=== PATIENT | female | born 1990 | race Caucasian/White ===

== ENCOUNTER 2018-06-22 17:17 | Emergency (ER) | payer MEDICAID, SELFPAY ==
[2018-06-22 17:18] VITALS: BP 129/93; PULSE 118; RESP 14; TEMP 36.1; O2SAT 97; BMI 32.5
[2018-06-22] MEDS: Ondansetron 4 MG/2 ML Vial IV (17:38)
[2018-06-22] MEDS: 0.9% Normal Saline 1,000 ML 999 ML IV (17:38)
[2018-06-22 17:47] LABS: Absolute Lymphocyte Count 0.62 X10^3/ul (0.83-4.51); Absolute Neutrophil Count 9.1 X10^3/uL (2.0-7.7); Basophil# 0.01 X10^3/uL; Basophil% 0.1 % (0-1); Eosinophil# 0.11 X10^3/uL; Eosinophils% 1.1 % (0-5); Hematocrit 41.1 % (37-47); Hemoglobin 13.7 g/dl (12.0-15.0); Lymphocyte # 0.62 X10^3/ul (4.0); Mean Corp Hgb Conc 33.3 g/gl (32-36); Mean Corpuscular Hgb 27.6 pg (27.0-32.0); Mean Corpuscular Volume 82.7 fL (81-99); Mean Platelet Vol. 10.8 fl (6.2-12.0); Monocyte# 0.51 X10^3/uL; Monocyte% 4.9 % (0-10); Neutrophil # 9.14 X10^3/uL (2.7-7.7); Neutrophil % 87.7 % (47-70); Platelet Count 271 K/mm3 (150-450); RBC Distribution Width CV 13.9 % (11.6-14.6); RBC Distribution Width SD 41.3 fl (35.1-43.9); Red Blood Count 4.97 M/mm3 (4.2-5.4); White Blood Count 10.4 K/mm3 (4.4-11.0)
[2018-06-22 17:51] LABS: POSITIVE COUNT NO; POSITIVE DIFFERENTIAL NO; POSITIVE MORPHOLOGY NO
[2018-06-22 18:07] LABS: AST(SGOT) 15 U/L (15-37); Alanine Aminotransfer ALT/SGPT 43 U/L (13-56); Alkaline Phosphatase 75 U/L (45-117); Anion Gap 10 (5-15); BUN 12 mg/dL (7-18); BUN/Creat Ratio 15.2 RATIO (10-20); Calcium,Total 8.9 mg/dL (8.5-10.1); Chloride 111 mmol/L (98-107); Creatinine, Serum 0.79 mg/dL (0.55-1.02); EST Glomerular Filtration Rate 94 mL/min (>60); Est Glom Filt Rate - Afr Amer 113 mL/min (>60); Estimated Creatinine Clearance 85.35 ml/min; Globulin 4.1 g/dL (2.2-4.2); Glucose 117 mg/dL (74-106); Lipase 64 U/L (73-393); Potassium 3.7 mmol/L (3.5-5.1); Protein, Total 8.1 g/dL (6.4-8.2); Sodium Level 141 mmol/L (136-145)
--- NOTE | 2018-06-22 18:09 | ED.VISSUMM ---
- ER Visit Summary Date of Service: 06/22/18 Chief Complaint: Nausea vomiting and diarrhea History of Present Illness: The patient is a 28 F who presents with the above symptoms. She started having the symptoms earlier today. She has vomited more than 10 times. She has had more diarrhea than that. She has diffuse abdominal cramping associated with this. Nothing makes it better or worse. She took nothing for this at home. She denies any fevers. No history of abdominal surgeries in the past Physical Examination: Vital signs reviewed. HEENT exam unremarkable. Heart is tachycardic and regular rhythm without murmurs. Lungs are clear to auscultation. Abdomen is soft and nontender. Extremities reveal no edema. Skin exam normal. Neurologic exam normal. Test Results: Laboratory showed a chloride of 111, bicarb 20. Glucose 117. The patient serum hCG is positive Emergency Department Course and Treatment: Patient given normal saline Zofran. She feels better. I informed her of the positive test. She states that her last period was a little bit manager investigations than normal and she was off of her control and she did not restarted because she was waiting for her next menstrual cycle. 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 I will give her Zofran for home. Treatment Plan: [] Disposition: Discharge Impression: Nausea vomiting and diarrhea, This note was generated with TweetMeme dictation software. It may contain incorrect words, spelling, and punctuation that were not noted in review of the chart prior to signing ED Disposition - Plan for ED Patient: Chief Complaint: Nausea/Vomiting/Diarrhea Referrals: Lior Parker MD [Primary Care Provider] -
[2018-06-22 18:20] LABS: Pregnancy, Serum, hCG Quali. POSITIVE Negative (0-9 Nonpreg)
--- NOTE | 2018-06-22 18:20 | ED.RN ---
Etta from lab called result on this pt of positive test
--- NOTE | 2018-06-22 18:29 | ED.DEP ---
ED Disposition - Plan for ED Patient: Disposition: Home or Assisted Living Chief Complaint: Nausea/Vomiting/Diarrhea Instructions: ED Gastroenteritis Viral Prescriptions: Ondansetron [Zofran Odt] 4 mg PO Q8H PRN PRN #10 tab PRN Reason: Nausea Referrals: Lior Parker MD [Primary Care Provider] -
[2018-06-22 18:34] VITALS: BP 122/78; PULSE 87; RESP 16; O2SAT 98
== END 2018-06-22 18:35 | disposition home or self-care (01) ==
PROVIDERS: Emergency Provider Emergency Medicine; Family Provider Family Medicine; PCP Family Medicine
DX: O21.9 Vomiting of pregnancy, unspecified (principal); R00.0 Tachycardia, unspecified; R19.7 Diarrhea, unspecified; Z3A.00 Weeks of gestation of pregnancy not specified
CPT/HCPCS: 80053; 83690; 84703; 85025; 96361; 96374; 99284; J7030; A4216; J2405

== ENCOUNTER → 2018-07-21 09:19 | Outpatient (CLI) | payer MEDICAID, SELFPAY ==
[2018-07-21 09:12] VITALS: BMI 32.5
[2018-07-21 09:56] LABS: Absolute Lymphocyte Count 1.78 X10^3/ul (0.83-4.51); Absolute Neutrophil Count 3.9 X10^3/uL (2.0-7.7); Basophil# 0.03 X10^3/uL; Basophil% 0.5 % (0-1); Eosinophil# 0.28 X10^3/uL; Eosinophils% 4.4 % (0-5); Hematocrit 34.6 % (37-47); Hemoglobin 11.7 g/dl (12.0-15.0); Lymphocyte # 1.78 X10^3/ul (4.0); Mean Corp Hgb Conc 33.8 g/gl (32-36); Mean Corpuscular Hgb 28.6 pg (27.0-32.0); Mean Corpuscular Volume 84.6 fL (81-99); Mean Platelet Vol. 10.8 fl (6.2-12.0); Monocyte# 0.39 X10^3/uL; Monocyte% 6.1 % (0-10); Neutrophil # 3.86 X10^3/uL (2.7-7.7); Neutrophil % 60.7 % (47-70); POSITIVE COUNT NO; POSITIVE DIFFERENTIAL NO; POSITIVE MORPHOLOGY NO; Platelet Count 234 K/mm3 (150-450); RBC Distribution Width CV 13.4 % (11.6-14.6); RBC Distribution Width SD 41.1 fl (35.1-43.9); Red Blood Count 4.09 M/mm3 (4.2-5.4); White Blood Count 6.4 K/mm3 (4.4-11.0)
[2018-07-21 10:16] LABS: Glucose Challenge Gest 1H 50g 169 mg/dL (70-140)
[2018-07-21 12:03] LABS: HIV - WCH Non-Reactive (Nonreactive); Rubella IgG 79.9 IU/mL
[2018-07-21 15:07] LABS: Chlamydia Trachomatis by PCR Negative (Negative); Neisserai gonorrhoeae by PCR Negative (Negative); Probe Check PASS; Sample Adequacy Control PASS; Specimen Processing Control PASS
[2018-07-21 21:32] LABS: Chlamydia Trachomatis by PCR Negative (Negative); Neisserai gonorrhoeae by PCR Negative (Negative); Probe Check PASS; Sample Adequacy Control PASS; Specimen Processing Control PASS
[2018-07-22 12:23] LABS: HEPATITIS B SURFACE AG Negative (Negative)
[2018-07-24 03:11] LABS: Rapid Plasmin Reagin (RPR) NONREACTIVE (NONREACTIVE)
[2018-07-24 08:38] LABS: HPV Reflexed? NOT INDICATED
== END ==
PROVIDERS: Family Provider Family Medicine; PCP Family Medicine; Visit Provider Obstetrics & Gynecology
DX: Z34.81 Encounter for supervision of other normal pregnancy, first trimester (principal); Z12.4 Encounter for screening for malignant neoplasm of cervix
CPT/HCPCS: 36415; 82950; 85025; 86592; 86703; 86762; 86850; 86900; 87086; 87340; 87491; 87591; 87624; 88175; G0145

== ENCOUNTER → 2018-07-23 07:00 | Outpatient (CLI) | payer MEDICAID, SELFPAY ==
[2018-07-21 09:12] VITALS: BMI 32.5
[2018-07-23 07:52] LABS: Glucose GTT-Gestation. Fasting 113 mg/dL (<105)
[2018-07-23 09:44] LABS: Glucose GTT-Gestational 1 Hr 214 mg/dL (<190)
[2018-07-23 09:46] LABS: Glucose GTT-Gestational 2 Hr 159 mg/dL (<165)
[2018-07-23 11:30] LABS: Glucose GTT-Gestational 3 Hr 82 L (<145)
== END ==
PROVIDERS: Family Provider Family Medicine; PCP Family Medicine; Referring Provider Obstetrics & Gynecology; Visit Provider Obstetrics & Gynecology
DX: R73.09 Other abnormal glucose (principal)
CPT/HCPCS: 36415; 82951; 82952

== ENCOUNTER → 2018-07-24 11:52 | Outpatient (CLI) | payer MEDICAID, SELFPAY ==
[2018-07-21 09:12] VITALS: BMI 32.5
--- NOTE | 2018-07-24 12:16 | EKG12_ITS ---
Test Reason : PRE DIABETIC PREG Blood Pressure : / mmHG Vent. Rate : 082 BPM Atrial Rate : 082 BPM P-R Int : 178 ms QRS Dur : 084 ms QT Int : 356 ms P-R-T Axes : 028 037 029 degrees QTc Int : 415 ms Normal sinus rhythm with sinus arrhythmia Normal ECG Confirmed by YVON RICHARDS, MELISSA ([id number]), newspaper or periodical editor KIET GUERRERO ([id number]) on 07/27/2018 2:51:02 PM Referred By: Cailin Rodriguez Confirmed By:MELISSA SANZ MD
[2018-07-24 13:52] LABS: Protein, Urine (Random) < 6.0 mg/dL (<11.9); Protein:Creat Ratio 64 mg/g CRE (0-200)
[2018-07-24 14:09] LABS: AST(SGOT) 13 U/L (15-37); Alanine Aminotransfer ALT/SGPT 29 U/L (13-56); Albumin, Serum 3.8 g/dL (3.2-5.0); Alkaline Phosphatase 62 U/L (45-117); Anion Gap 11 (5-15); BUN 10 mg/dL (7-18); BUN/Creat Ratio 16.1 RATIO (10-20); Calcium,Total 9.3 mg/dL (8.5-10.1); Chloride 106 mmol/L (98-107); Creatinine, Serum 0.62 mg/dL (0.55-1.02); EST Glomerular Filtration Rate 123 mL/min (>60); Est Glom Filt Rate - Afr Amer 149 mL/min (>60); Globulin 3.9 g/dL (2.2-4.2); Glucose 76 mg/dL (74-106); Potassium 3.7 mmol/L (3.5-5.1); Protein, Total 7.7 g/dL (6.4-8.2); Sodium Level 140 mmol/L (136-145); Thyroid Stim Hormone (TSH) 1.07 uIU/mL (0.358-3.74)
== END ==
PROVIDERS: Family Provider Family Medicine; PCP Family Medicine; Referring Provider Nurse Practitioner Women's Health; Visit Provider Nurse Practitioner Women's Health
DX: O24.419 Gestational diabetes mellitus in pregnancy, unspecified control (principal); Z3A.00 Weeks of gestation of pregnancy not specified
CPT/HCPCS: 36415; 80053; 82570; 84156; 84443; 93005

== ENCOUNTER 2018-08-19 10:45 | Outpatient (RCR) | payer MEDICAID, SELFPAY ==
[2018-07-21 09:12] VITALS: BMI 32.5
== END 2018-08-23 23:59 ==
LOC: DC 10:45
PROVIDERS: Family Provider Family Medicine; PCP Family Medicine; Visit Provider Nurse Practitioner Women's Health
DX: O24.919 Unspecified diabetes mellitus in pregnancy, unspecified trimester (principal)
CPT/HCPCS: 97802; G0108

== ENCOUNTER 2018-09-11 14:52 | Emergency (ER) | payer MEDICAID, SELFPAY ==
[2018-08-18 10:26] VITALS: BMI 32.5
[2018-09-11 14:57] VITALS: BP 106/77; PULSE 78; RESP 18; TEMP 36.1; O2SAT 98; BMI 32.9
[2018-09-11] MEDS: Ondansetron 4 MG/2 ML Vial IV (15:03)
[2018-09-11] MEDS: Ketorolac 15 MG/ML Vial IV (15:04)
--- NOTE | 2018-09-11 15:05 | CT_ITS ---
STUDY: CT ABDOMEN AND PELVIS WITHOUT CONTRAST REASON FOR EXAM: Female, 28 years old. Left flank pain. patient. RADIATION DOSAGE (If Supplied By Facility): CTDIvol = ( 9.03 ) mGy, DLP = ( 448.96 ) mGycm TECHNIQUE: Transaxial images were obtained from the dome of the diaphragm to the symphysis pubis without oral contrast, and without intravenous contrast. Sagittal and coronal images were reconstructed. Individualized dose optimization techniques were used for this CT. COMPARISON: None. FINDINGS: The visualized lung bases are unremarkable. The visualized portions of the heart are within normal limits. Normal liver. Normal gallbladder and extrahepatic biliary system. Normal spleen. Normal pancreas. Normal bilateral adrenal glands. Normal right kidney. No stones or hydronephrosis. Left kidney suggests mild hydronephrosis. Probable mild hydroureter although the ureters very difficult to follow into the pelvis. A 6 mm calcification in the area of the left UVJ is probably a distal left ureteral calculus. No other stones are seen. Evaluation of the GI tract is limited by the absence of oral contrast. Normal visualized stomach. Normal small intestine. Normal colon. The appendix is visualized and appears normal. Normal abdominal aorta. Normal inferior vena cava. Normal retroperitoneum. Normal urinary bladder. There is an early seen in the uterus. There is a small umbilical hernia containing fat. Normal osseous structures. CT/Abdomen/Pelvis without Cont IMPRESSION: Probable 6 mm distal left ureteral calculus with mild hydronephrosis and hydroureter. Electronically Signed: Herson Brooks MD at 16:29 EDT , Service support ,
[2018-09-11] MEDS: Morphine 4 MG/ML Syringe IV ×2 (15:09→15:59)
--- NOTE | 2018-09-11 15:10 | ED.DCSUM_ITS ---
History of Present Illness Chief Complaint: Flank Pain Informant: Patient Onset: Today Context: Sudden Onset Timing: Continuous, Waxes and wanes Quality: Colicky pain left side Location: Left flank Current Severity: Severe Maximum Severity: Severe Worsened by: Nothing Relieved by: Nothing Associated Symptoms: Nausea, vomiting and diaphoresis Narrative: Patient presents with abrupt left flank pain. She reports nausea, vomiting diaphoresis. She denies fever chills. She has prior history of ureteral lithiasis with obstruction. She is 16 weeks gestation. Pain started approximately 3 hours prior to presentation. Pain has intensified over the last hour. She denies dysuria or hematuria. She does report urgency. Prior similar symptoms: Yes Recent Illness/Hospitalization: No - Past Medical History (1) History of ureteral stone Status: Resolved (2) Diabetes in Status: Acute Comment: baseline Pre E labs, EKG(normal), Opthamologist. (3) Nausea and vomiting Status: Acute Past Medical History - Allergies and Home Meds Allergies/Adverse Reactions: Allergies No Known Allergies Allergy (Verified 09/11/18 15:07) Primary Care Physician: Lior Parker MD [Primary Care Provider] - Prior records reviewed: Yes Surgical History: noncontributory Lives: With Family Smoking Status: Never smoker Alcohol: None Drugs: None Review of Systems General: Denies: Chills, Fever, Sweats Eyes: Denies: Visual changes - bilaterally, Diplopia ENT: Denies: Rhinorrhea, Sore throat Cardiovascular: Denies: Chest pain, Palpitations, Heart racing Respiratory: Denies: Dyspnea, Cough, Dyspnea on exertion Gastrointestinal: Denies: Abdominal pain, Nausea, Vomiting, Diarrhea, Melena, Hematochezia Genitourinary: Reports: - - Patient reports urgency. Denies: Dysuria, Hematuria, Frequency Musculoskeletal: Reports: Back pain Skin: Denies: Rash, Wounds Neurological: Denies: Headache, Weakness, Numbness Hematologic: Denies: Easy bruising, Easy bleeding Allergy: Denies: Uticaria Physical Exam Vital Signs/Narrative: Vital Signs Temp Pulse Resp BP Pulse Ox 09/11/18 14:57 97 F L 78 18 106/77 98 Inital Vital Signs reviewed: Yes General: Well nourished, Well developed, Acute Distress - Patient in obvious discomfort and writhing on the examination cough. She is pale and diaphoretic. Head: Normocephalic, Atraumatic Eyes: Perrl, EOMI ENT: Moist mucous membranes, No rhinorrhea Neck: Supple, Nontender Cardiovascular: Regular rate, Regular rhythm, No murmurs Respiratory: No distress, CTA bilaterally, Chest nontender Abdomen: Soft, Nontender, Nondistended, Normal bowel sounds, No masses. Negative for: Hepatomegaly, Splenomegaly, Mass Back: Nontender, Normal Inspection. Negative for: CVA tenderness Extremities: Nontender, No edema Skin: Normal color, No rash Neurological: Alert, Oriented x3, Cranial nerves II-XII grossly intact, Normal Strength, Normal Sensation, Normal Gait Psychological: Normal affect, Normal Mood Diagnostic/Tx/Re-eval 09/11/18 15:05 Abdomen/Pelvis without Cont [CT] Stat Laboratory Results 09/11/18 09/11/18 09/11/18 15:00 15:00 15:50 WBC 10.6 RBC 4.29 Hgb 11.9 L Hct 34.9 L MCV 81.4 MCH 27.7 MCHC 34.1 RDW 13.4 RDW Differential 39.7 Plt Count 223 MPV 11.3 Immature Gran % (Auto) 0.200 Neut % (Auto) 74.8 H Lymph % (Auto) 17.6 L [place] % (Auto) 5.6 Eos % (Auto) 1.6 Baso % (Auto) 0.2 Absolute Neuts (auto) 7.9 H Absolute Lymphs (auto) 1.86 Total Counted Not Reportable Sodium 139 Potassium 3.4 L Chloride 107 Carbon Dioxide 20.0 L Anion Gap 12 BUN 10 Creatinine 0.68 Estim Creat Clear Calc 99.16 Est GFR (MDRD) Af Amer 134 Est GFR (MDRD) Non-Af 111 BUN/Creatinine Ratio 14.7 Glucose 116 H Calcium 9.0 Urine Color Yellow Urine Clarity Sl. Cloudy Urine pH 6.0 Ur Specific [place] 1.025 Urine Protein 30 H Urine Glucose (UA) Normal Urine Ketones 150 H Urine Occult Blood 250 H Urine Nitrite Negative Urine Bilirubin Negative Urine Urobilinogen Normal Ur Leukocyte Esterase 25 H Formal read by radiologist pending. Per my interpretation there is a distal left ureteral stone at the UVJ. Patient's pain is markedly better. Plan is discharge unless there is any other abnormality noted. - Medical Decision Making With acute onset of flank pain with nausea and vomiting suspect obstructing ureteral stone. CBC, BMP were obtained to assess white count and differential as well as renal function. UA to evaluate for infection. Since she is in her second trimester she received 15 mg of IV Toradol as well as 4 mg of morphine and 4 mg of Zofran IV push. Will obtain CT to assess size and location of stone. ED Disposition - Plan for ED Patient: Disposition: Home or Assisted Living Diagnosis: Hydronephrosis with urinary obstruction due to ureteral calculus, Ketosis Instructions: ED Stone Renal W Colic Prescriptions: Oxycodone HCl/Acetaminophen [Percocet 5/325] 1 tablet PO Q6H PRN PRN 5 Days #20 tablet PRN Reason: Pain Naproxen [Naprosyn] 500 mg PO BID #14 tablet Referrals: Lior Parker MD [Primary Care Provider] - Ponce Herrera MD [STAFF PHYSICIAN] - 5-7 Days Additional Instructions: Your prescription was electronically transmitted to [facility] pharmacy on back [facility].
[2018-09-11 15:19] LABS: Absolute Lymphocyte Count 1.86 X10^3/ul (0.83-4.51); Absolute Neutrophil Count 7.9 X10^3/uL (2.0-7.7); Basophil# 0.02 X10^3/uL; Basophil% 0.2 % (0-1); Eosinophil# 0.17 X10^3/uL; Eosinophils% 1.6 % (0-5); Hematocrit 34.9 % (37-47); Hemoglobin 11.9 g/dl (12.0-15.0); Lymphocyte # 1.86 X10^3/ul (4.0); Lymphocyte % 17.6 % (19-41); Mean Corp Hgb Conc 34.1 g/gl (32-36); Mean Corpuscular Hgb 27.7 pg (27.0-32.0); Mean Corpuscular Volume 81.4 fL (81-99); Mean Platelet Vol. 11.3 fl (6.2-12.0); Monocyte# 0.59 X10^3/uL; Monocyte% 5.6 % (0-10); Neutrophil # 7.89 X10^3/uL (2.7-7.7); Neutrophil % 74.8 % (47-70); Platelet Count 223 K/mm3 (150-450); RBC Distribution Width CV 13.4 % (11.6-14.6); RBC Distribution Width SD 39.7 fl (35.1-43.9); Red Blood Count 4.29 M/mm3 (4.2-5.4); White Blood Count 10.6 K/mm3 (4.4-11.0)
[2018-09-11 15:26] LABS: POSITIVE COUNT NO; POSITIVE DIFFERENTIAL NO; POSITIVE MORPHOLOGY NO
[2018-09-11 15:33] LABS: Anion Gap 12 (5-15); BUN 10 mg/dL (7-18); BUN/Creat Ratio 14.7 RATIO (10-20); Chloride 107 mmol/L (98-107); Creatinine, Serum 0.68 mg/dL (0.55-1.02); EST Glomerular Filtration Rate 111 mL/min (>60); Est Glom Filt Rate - Afr Amer 134 mL/min (>60); Estimated Creatinine Clearance 99.16 ml/min; Glucose 116 mg/dL (74-106); Potassium 3.4 mmol/L (3.5-5.1); Sodium Level 139 mmol/L (136-145)
[2018-09-11 16:06] LABS: Color, Urine Yellow (Yellow); Glucose, Dipstick Normal (Normal); Leukocyte Esterase-Dipstick 25 /ul (Negative); Nitrite-Dipstick Negative (Negative); Occult Blood-Urine 250 /ul (Negative); Protein-Dipstick 30 mg/dl (Negative); Specific Gravity, Urine 1.025 (1.002-1.030); Urine Bilirubin Dipstick Negative (Negative); Urine Clarity Sl. Cloudy (Clear); Urine Urobilinogen Normal (Normal)
[2018-09-11 16:15] LABS: Bacteria 1+ /hpf (None Seen); Mucous, Urine 2+ /hpf (<or=2+); Red Blood Cells-Urine 50-100 SEEN /hpf (0-5); Squamous Epithelial Cells - UA 0-5 SEEN /hpf (5-10); White Blood Cells 0-5 SEEN /hpf (0-5)
[2018-09-11 16:17] LABS: Ketone-Dipstick 150 mg/dl (Negative)
--- NOTE | 2018-09-11 16:49 | ED.DEP ---
ED Disposition - Plan for ED Patient: Disposition: Home or Assisted Living Diagnosis: Hydronephrosis with urinary obstruction due to ureteral calculus, Ketosis Instructions: ED Stone Renal W Colic Prescriptions: Oxycodone HCl/Acetaminophen [Percocet 5/325] 1 tablet PO Q6H PRN PRN 5 Days #20 tablet PRN Reason: Pain Naproxen [Naprosyn] 500 mg PO BID #14 tablet Referrals: Ponce Herrera MD [STAFF PHYSICIAN] - 5-7 Days Lior Parker MD [Primary Care Provider] - Additional Instructions: Your prescription was electronically transmitted to [facility] pharmacy on back [facility].
--- NOTE | 2018-09-11 16:52 | DCINST.ED_ITS ---
ED Disposition - Plan for ED Patient: Disposition: Home or Assisted Living Diagnosis: Hydronephrosis with urinary obstruction due to ureteral calculus, Ketosis Instructions: ED Stone Renal W Colic Prescriptions: Oxycodone HCl/Acetaminophen [Percocet 5/325] 1 tablet PO Q6H PRN PRN 5 Days #20 tablet PRN Reason: Pain Naproxen [Naprosyn] 500 mg PO BID #14 tablet Referrals: Ponce Herrera MD [STAFF PHYSICIAN] - 5-7 Days Lior Parker MD [Primary Care Provider] - Additional Instructions: Your prescription was electronically transmitted to [facility] pharmacy on back [facility].
[2018-09-11 17:00] VITALS: BP 125/79; PULSE 85; RESP 16; O2SAT 100
[2018-09-11 17:01] VITALS: BP 125/79; PULSE 89; RESP 16; O2SAT 100
== END 2018-09-11 17:11 | disposition home or self-care (01) ==
PROVIDERS: Emergency Provider Emergency Medicine; Family Provider Family Medicine; PCP Family Medicine
DX: O99.89 Other specified diseases and conditions complicating pregnancy, childbirth and the puerperium (principal); N13.2 Hydronephrosis with renal and ureteral calculous obstruction; Z87.442 Personal history of urinary calculi; O99.282 Endocrine, nutritional and metabolic diseases complicating pregnancy, second trimester; E88.89 Other specified metabolic disorders; O24.912 Unspecified diabetes mellitus in pregnancy, second trimester; Z3A.16 16 weeks gestation of pregnancy
CPT/HCPCS: 74176; 80048; 81001; 85025; 96374; 96375; 96376; 99283; J7030; J2405

== ENCOUNTER 2018-09-21 09:30 | Outpatient (RCR) | payer MEDICAID, SELFPAY ==
[2018-08-18 10:26] VITALS: BMI 32.5
[2018-09-16 09:17] VITALS: BMI 32.9
== END 2018-09-22 23:59 ==
LOC: DC 09:30
PROVIDERS: Family Provider Family Medicine; PCP Family Medicine; Visit Provider Nurse Practitioner Women's Health
DX: O24.919 Unspecified diabetes mellitus in pregnancy, unspecified trimester (principal)
CPT/HCPCS: 97803

== ENCOUNTER 2018-10-20 09:00 | Outpatient (RCR) | payer MEDICAID, SELFPAY ==
[2018-09-23 01:33] VITALS: BMI 32.5
== END 2018-10-23 23:59 ==
LOC: DC 09:00
PROVIDERS: Family Provider Family Medicine; PCP Family Medicine; Visit Provider Nurse Practitioner Women's Health
DX: O24.919 Unspecified diabetes mellitus in pregnancy, unspecified trimester (principal)

== ENCOUNTER 2018-11-16 09:30 | Outpatient (RCR) | payer MEDICAID, SELFPAY ==
[2018-10-24 01:00] VITALS: BMI 32.9
[2018-10-26 10:28] VITALS: BMI 32.0
== END 2018-11-22 23:59 ==
LOC: DC 09:30
PROVIDERS: Family Provider Family Medicine; PCP Family Medicine; Visit Provider Nurse Practitioner Women's Health
DX: O24.919 Unspecified diabetes mellitus in pregnancy, unspecified trimester (principal)

== ENCOUNTER → 2018-12-08 09:55 | Outpatient (CLI) | payer MEDICAID, SELFPAY ==
[2018-12-08 09:34] VITALS: BMI 32.0
[2018-12-08 10:43] LABS: Absolute Lymphocyte Count 1.55 X10^3/uL (0.83-4.51); Absolute Neutrophil Count 5.4 X10^3/uL (2.0-7.7); Basophil# 0.01 X10^3/uL; Basophil% 0.1 % (0-1); Eosinophil# 0.15 X10^3/uL; Hematocrit 32.2 % (37-47); Hemoglobin 10.8 g/dL (12.0-15.0); Lymphocyte # 1.55 X10^3/ul (4.0); Lymphocyte % 20.6 % (19-41); Mean Corp Hgb Conc 33.5 g/dL (32-36); Mean Corpuscular Volume 86.3 fL (81-99); Mean Platelet Vol. 11.2 fl (6.2-12.0); Monocyte# 0.37 X10^3/uL; Monocyte% 4.9 % (0-10); NRBC Flagged by Analyzer 0 % (0-5); Neutrophil # 5.39 X10^3/uL (2.7-7.7); Neutrophil % 71.6 % (47-70); Platelet Count 212 K/mm3 (150-450); RBC Distribution Width CV 14.1 % (11.6-14.6); RBC Distribution Width SD 43.9 fl (35.1-43.9); Red Blood Count 3.73 M/mm3 (4.2-5.4); White Blood Count 7.5 K/mm3 (4.4-11.0)
[2018-12-08 10:56] LABS: Glucose Challenge Gest 1H 50g 163 mg/dL (70-140)
== END ==
PROVIDERS: Family Provider Family Medicine; PCP Family Medicine; Referring Provider Nurse Practitioner Women's Health; Visit Provider Nurse Practitioner Women's Health
DX: O09.90 Supervision of high risk pregnancy, unspecified, unspecified trimester (principal); O24.919 Unspecified diabetes mellitus in pregnancy, unspecified trimester; Z3A.00 Weeks of gestation of pregnancy not specified
CPT/HCPCS: 82950; 85025; 86850; 86900

== ENCOUNTER 2018-12-15 13:30 | Outpatient (RCR) | payer MEDICAID, SELFPAY ==
[2018-11-12 14:07] VITALS: BMI 32.0
[2018-12-08 09:34] VITALS: BMI 32.0
== END 2018-12-15 23:59 | disposition home or self-care (01) ==
LOC: DC 13:30
PROVIDERS: Family Provider Family Medicine; PCP Family Medicine; Visit Provider Nurse Practitioner Women's Health
DX: Z71.3 Dietary counseling and surveillance (principal); O24.919 Unspecified diabetes mellitus in pregnancy, unspecified trimester; Z3A.00 Weeks of gestation of pregnancy not specified

== ENCOUNTER → 2018-12-30 12:27 | Outpatient (CLI) | payer MEDICAID, SELFPAY ==
[2018-12-21 16:33] VITALS: BMI 32.0
--- NOTE | 2018-12-30 12:29 | US_ITS ---
STUDY: SECOND AND THIRD TRIMESTER OBSTETRICAL ULTRASOUND REASON FOR EXAM: Female, 28 years old. Routine survey. The patient has a history of gestational diabetes. LMP: May 24, 2018. TECHNIQUE: Transabdominal TECHNICAL QUALITY: Adequate. PRIOR ULTRASOUND: None. FINDINGS: There is a single intrauterine fetus. The fetus is in a breech presentation. There is demonstrated cardiac activity with a heart rate of 136 bpm. There is a normal amniotic fluid volume. The largest amniotic fluid pocket measures 5.7 cm. The amniotic fluid index (SELENA) is 17.4 cm. The placenta is anterior in location and is not low lying. There is a 2.4 cm x 2.4 cm x 2.2 cm placental martínez. There are Grade 1 placental changes. The cervix measures 4.7 cm in length. The adnexal regions are not visualized. BIOMETRY: BPD: 7.94 cm: 32 weeks, 0 days HC: 29.32 cm: 30 weeks, 3 days AC: 28.48 cm: 32 weeks, 4 days FL: 5.1 cm: 30 weeks, 3 days CI: 79% FL/BPD: 73% FL/HC: FL/AC: 20% HC/AC: 1.03 age by current US: 31 weeks, 6 days. ELVA by current US: February 28, 2019. Estimated weight: 1841 grams, +/- 269 grams, 51 %. Age by LMP: 31 weeks, 3 days. ELVA by LMP: February 25, 2019. US/OB Limited With Biometrics IMPRESSION: Single live intrauterine gestation with a mean gestational age of 31 weeks and 6 days. Electronically Signed: Ankush Pinzon, at 9:41 EDT , Service support ,
== END ==
PROVIDERS: Family Provider Family Medicine; PCP Family Medicine; Referring Provider Nurse Practitioner Women's Health; Visit Provider Nurse Practitioner Women's Health
DX: O24.919 Unspecified diabetes mellitus in pregnancy, unspecified trimester (principal); Z3A.00 Weeks of gestation of pregnancy not specified
CPT/HCPCS: 76816

== ENCOUNTER → 2019-02-04 09:02 | Outpatient (CLI) | payer MEDICAID, SELFPAY ==
[2019-01-20 09:47] VITALS: BMI 32.0
[2019-01-30 03:58] VITALS: BMI 32.0
--- NOTE | 2019-02-04 09:04 | US_ITS ---
STUDY: SECOND AND THIRD TRIMESTER OBSTETRICAL ULTRASOUND REASON FOR EXAM: Female, 28 years old. Evaluate growth LMP: 05/24/2018 TECHNIQUE: Transabdominal TECHNICAL QUALITY: Adequate. PRIOR ULTRASOUND: 12/30/2018 FINDINGS: There is a single intrauterine fetus. The fetus is in a cephalic presentation. There is demonstrated cardiac activity with a heart rate of 146 bpm. There is a normal amniotic fluid volume. The largest amniotic fluid pocket measures 4.8 cm. The amniotic fluid index (SELENA) is 14.8 cm. The placenta is anterior in location and is not low lying. There are Grade 2 placental changes. A previously reported placental martínez appear smaller in the interval. The cervix was not visualized. The adnexal regions were not visualized. BIOMETRY: BPD: 9.0 cm: 36 weeks, 4 days HC: 32.7 cm: 37 weeks, 2 days AC: 32.8 cm: 36 weeks, 6 days FL: 7.0 cm: 36 weeks, 0 days CI: 80% FL/BPD: 78% FL/AC: 21% HC/AC: 1.00 age by current US: 36 weeks, 5 days. ELVA by current US: 02/27/2019. Estimated weight: 2974 grams, +/- 434 grams, 54 %. age by prior US: 37 weeks, 0 days. ELVA by prior US: 02/25/2019. Age by LMP: 36 weeks, 4 days. ELVA by LMP: 02/28/2019. ANATOMY: The umbilical cord is located along the posterior neck and both sides of the neck. Due to position the position of the cord along the anterior neck could not be determined. US/OB Limited With Biometrics IMPRESSION: No viable intrauterine of approximately 36 weeks 5 days gestational age by current ultrasonographic measurement. A heart rate of 146 bpm was noted. The SELENA is within normal limits. Electronically Signed: James Cast MD at 22:29 EDT , Service support ,
== END ==
PROVIDERS: Family Provider Family Medicine; PCP Family Medicine; Referring Provider Nurse Practitioner Women's Health; Visit Provider Nurse Practitioner Women's Health
DX: O24.919 Unspecified diabetes mellitus in pregnancy, unspecified trimester (principal); Z3A.00 Weeks of gestation of pregnancy not specified
CPT/HCPCS: 76816

== ENCOUNTER → 2019-02-05 11:16 | Outpatient (CLI) | payer MEDICAID, SELFPAY ==
[2019-02-05 10:26] VITALS: BMI 32.0
== END ==
PROVIDERS: Family Provider Family Medicine; PCP Family Medicine; Referring Provider Obstetrics & Gynecology; Visit Provider Obstetrics & Gynecology
DX: Z34.93 Encounter for supervision of normal pregnancy, unspecified, third trimester (principal); Z3A.36 36 weeks gestation of pregnancy
CPT/HCPCS: 87077; 87081; 87186

== ENCOUNTER 2019-02-14 05:32 | Outpatient (CLI) | payer MEDICAID, SELFPAY ==
[2019-02-11 09:23] VITALS: BMI 32.0
[2019-02-14 06:09] VITALS: BMI 32.5
[2019-02-14 07:01] LABS: Bedside Glucose 78 mg/dL (70-110)
--- NOTE | 2019-02-14 12:27 | OB.TRI.PN ---
Progress Notes Date of Service: 02/14/19 Progress Note: Patient presents for triage evaluation secondary to contractions FHT: 140 Moderate variability reactive no decelerations category I tracing Arthur: Irregular contractions Assessment and plan: False labor reactive NST, reassuring maternal and status patient discharged to home to follow-up as scheduled. See problem list details for additional plan information. Laboratory Studies: Laboratory Tests 02/14/19 Range/Units 06:57 POC Glucose 78 (70-110) mg/dL Multi Select Codes - Urinary/Genital Urinary/Genital CPT Codes: 16761-55 non-stress test Interp
== END 2019-02-14 08:32 | disposition home or self-care (01) ==
LOC: WPOUT 05:58 → WP 05:59
PROVIDERS: Family Provider Family Medicine; PCP Family Medicine; Referring Provider Obstetrics & Gynecology; Visit Provider Obstetrics & Gynecology
DX: O47.9 False labor, unspecified (principal)
CPT/HCPCS: 59050; 82962; 99218; G0378

== ENCOUNTER 2019-02-22 08:50 | Inpatient (IN) | payer MEDICAID, SELFPAY ==
[2019-02-16 10:37] VITALS: BMI 32.5
[2019-02-22 08:58] VITALS: BMI 32.7
[2019-02-22] MEDS: Lactated Ringers 1,000 ML 50 ML IV (09:05)
[2019-02-22 09:37] LABS: Absolute Lymphocyte Count 1.97 X10^3/uL (0.83-4.51); Absolute Neutrophil Count 6.7 X10^3/uL (2.0-7.7); Basophil# 0.05 X10^3/uL; Basophil% 0.5 % (0-1); Eosinophil# 0.19 X10^3/uL; Hematocrit 34.3 % (37-47); Hemoglobin 11.4 g/dL (12.0-15.0); Lymphocyte # 1.97 X10^3/ul (4.0); Lymphocyte % 20.6 % (19-41); Mean Corp Hgb Conc 33.2 g/dL (32-36); Mean Corpuscular Volume 84.3 fL (81-99); Monocyte# 0.59 X10^3/uL; Monocyte% 6.2 % (0-10); NRBC Flagged by Analyzer 0 % (0-5); Platelet Count 202 K/mm3 (150-450); RBC Distribution Width CV 13.9 % (11.6-14.6); RBC Distribution Width SD 42.6 fl (35.1-43.9); Red Blood Count 4.07 M/mm3 (4.2-5.4); White Blood Count 9.6 K/mm3 (4.4-11.0)
[2019-02-22] MEDS: Oxytocin 30 units/NS 500 ml 30 UNITS/500 ML IV.SOLN IV (09:41)
[2019-02-22] MEDS: Lactated Ringers 500 ML 999 ML IV ×2 (12:40→14:38)
--- NOTE | 2019-02-22 13:14 | PCM.HPOB.BLA ---
- Problem List (1) Anemia affecting Status: Acute Qualifiers: Comment: Start iron (2) Diabetes in Status: Acute Qualifiers: Comment: baseline Pre E labs nl, EKG(normal), s/p Opthamologist. growth us q4 weeks after 32 and weekly nst after 32 iol 39 (3) Pain in symphysis pubis during Status: Acute (4) Positive GBS test Status: Acute (5) Status: Acute Qualifiers: Comment: genetic, carrier, and ntd screening declined. anatomy scan-normal. f/u showed adequate growth (6) Segmental and somatic dysfunction of lumbar region Status: Acute (7) Segmental and somatic dysfunction of sacral region Status: Acute (8) Supervision of high risk , antepartum Status: Acute Comment: PRR ELVA 02/28/19 PC Pushpa [facility], Cesar boyfriend Luis Alfredo History and Physical Date of Admission: 02/22/19 MR#:[id number] Name: TASHIBOOGIE Goldmancece #:[id number] :1990 Provider: DAVID Rodriguez Age/Sex: 28/F Location:[facility] Status:Signed Intake Vital Signs 02/11/19 Blood Pressure 92/78 02/11/19 Body Mass Index (BMI) 32.0 02/11/19 Height 5 ft 2 in 02/11/19 Weight: 178 lb 02/11/19 Body Mass Index (BMI) 32.5 02/11/19 Blood Pressure 92/78 02/04/19 Body Mass Index (BMI) 32.0 Intake Visit Reasons: 37 WK OB/NST Chief Complaint: est ob,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 Is patient in pain?: No Allergies No Known Allergies Allergy (Verified 02/11/19 09:23) Medications blood sugar diagnostic strips See Dose Instructions .ROUTE .MEDSUPPLY #100 ea 07/23/18 [Rx Confirmed 02/11/19] blood-glucose meter kit See Dose Instructions .ROUTE .MEDSUPPLY #1 ea 07/23/18 [Rx Confirmed 02/11/19] lancets 28 gauge See Dose Instructions .ROUTE .MEDSUPPLY #100 ea 08/11/18 [Rx Confirmed 02/11/19] Naproxen [Naprosyn] 500 mg PO BID #14 tab 09/11/18 [Rx Confirmed 02/11/19] Last Menstral Period: 05/24/18 Zika: Zika virus screening: Negative : No PFSH PFSH Medical History Anxiety and depression (Acute) Surgical History History of placement of ear tubes (Acute) History of tonsillectomy (Acute) Family History Aunt Cancer leukemia Grandfather Heart disease Unknown Breast cancer Social History (Updated 02/11/19 @ 10:10 by MIKIE Brooke) Smoking Status: Never smoker alcohol intake: never substance use type: does not use what type of physical activity do you participate in: walking seatbelt use: always do you feel safe at home: Yes additional social history: Single- [place] Pregancy History 4 Elective abortions Hx Para 3 Spontaneous abortions Hx # Term Pregnancies Ectopic pregnancies Hx # Pregnancies Multiple births # of living children Past Pregnancies Del. Date Name GA/Weeks Outcome Route Bth Weight Gen Labor Lgth Anesthesia Del Locatn Provider FOB Unknown 2011 Pushpa live - full term [facility] Leyla Unknown 2013 Shani live - full term [facility] Marcchanellony Unknown 2014 Cesar live - full term Male [facility] Harris HPI 37 WK OB/NST: Details: BOOGIE SOLORIO is a 28 year old who presents for routine OB visit. OB Visit ELVA Calculator Estimated Delivery Date Method Current WG Current Estimate 02/28/19 LMP (Certain) 37w 4d Expected Delivery Route/Plan Labor Preferences- labor support person: Curly pain management: epidural if needed cut cord/dad catch: yes : yes PP control planned: vasectomy. wants BTO-Title 19 signed 02/11:aware will be 6 wk pp at least discussed possible routes of delivery and associated risks: [] special requests: [] Specific Issue/Plans flu vaccine: given tdap vaccine: given rhogam: na LARC form signed: declines movement and labor precautions reviewed. Problem list reviewed and updated with the most current plan of care details and appropriate orders placed. Relevant counseling for the gestational age provided. Continue routine care and follow up unless otherwise noted in visit notes/problem list details Initial Weight: 182 lb Date EGA Weight BP Urine Prot Glucose FHR FuHt Pres Mov CTX Dilation Effaced St Visit Note Effaced 08/18/18 12w 2d 183 lb (+16 oz) 118/68 Negative Negative 146 Nausea improving. No VB, LOF. 09/16/18 16w 3d 177 lb (-5 lb) 114/68 Negative Negative 140 no vb cramping, well controlled blood sugars, decrease amount of testing. 10/13/18 20w 2d 174 lb (-8 lb) 140 bs well controlled no vb cramping some pelvic pressure, had normal anatomy scan per patient 11/10/18 24w 2d 175 lb (-7 lb) 122/70 Negative Negative 145 no vb lof good fm no regular ctx BS well controlled on diet alone 12/08/18 28w 2d 174 lb 8 oz (-7 lb 8 oz) 110/76 Negative Negative 137 28 Active absent Doing well. Glucose well controlled. NO VB, LOF 12/21/18 30w 1d 174 lb (-8 lb) 118/66 Negative Negative 135 30 no vb lof good fm n oregular ctx BS well controlled 01/05/19 32w 2d 175 lb (-7 lb) Negative Negative 135 BS well controlled growth us scheduled. no vb lof good fm no regular ctx 01/15/19 33w 5d 177 lb 4 oz (-4 lb 12 oz) 126/66 Negative Negative 135 34 no vb lof good fm no regular ctx BS well controlled 01/20/19 34w 3d 176 lb 1 oz (-5 lb 15 oz) 118/70 Negative Negative 135 34 Active absent NST. No VB, LOF 01/29/19 35w 5d 177 lb 4 oz (-4 lb 12 oz) 114/68 Trace Negative 130 Active absent BS well controlled no vb lof 02/05/19 36w 5d 178 lb (-4 lb) Negative Negative 130 37 Cephalic Active absent BS well controlled no vb lof 02/11/19 37w 4d 178 lb (-4 lb) 92/78 92/78 Negative Negative 136 37 Cephalic Active absent 2.40 -3 BS WNL. No VB, LOF. Visit Notes Visit Date: 02/11/19 BS WNL. No VB, LOF. LISA BrookeC on 02/11/19 Visit Date: 02/05/19 BS well controlled no vb lof Priya Kennedy MD on 02/10/19 Visit Date: 01/29/19 BS well controlled no vb jordanf Priya Kennedy MD on 01/30/19 Visit Date: 01/20/19 NST. No VB, LOF LISA BrookeC on 01/20/19 Visit Date: 01/15/19 no vb lof good fm no regular ctx BS well controlled Priya Kennedy MD on 01/15/19 Visit Date: 01/05/19 BS well controlled growth us scheduled. no vb lof good fm no regular ctx Priya Kennedy MD on 01/06/19 Visit Date: 12/21/18 BS well controlled Priya Kennedy MD on 12/23/18 no vb lof good fm n oregular ctx Priya Kennedy MD on 12/23/18 Visit Date: 12/08/18 Doing well. Glucose well controlled. NO VB, LOF LISA BrookeC on 12/08/18 Visit Date: 11/10/18 BS well controlled on diet alone Priya Kennedy MD on 11/14/18 no vb lof good fm no regular ctx Priya Kennedy MD on 11/14/18 Visit Date: 10/13/18 bs well controlled no vb cramping some pelvic pressure, had normal anatomy scan per patient Priya Kennedy MD on 10/13/18 Visit Date: 09/16/18 no vb cramping, well controlled blood sugars, decrease amount of testing. Priya Kennedy MD on 09/16/18 Visit Date: 08/18/18 Nausea improving. No VB, LOF. MIKIE Brooke on 08/18/18 ACOG First Trimester First Trimester: Desire for , Alcohol, Tobacco Cessation, Illicit/Recreational Drug/Substance Use, Intimate Partner Violence, Barriers to care, Unstable Housing, Communication Barriers, Environmental/Work Hazards, Anticipated Course of Care, Toxoplasmosis Precations, Use of Any medications, Sexual activity, Exercise, Dental Care, Sauna/Hot tub use, Seat Belt use, Childbirth classes/Hospital facilities, , Travel, Indications for US and Screening for Aneuploidy Diagnostics Diagnostics Labs Blood Type O POSITIVE 12/08/18 Antibody Screen NEGATIVE 12/08/18 Hct 32.2 % (37-47) L 12/08/18 Hgb 10.8 g/dL (12.0-15.0) L 12/08/18 Obstetrics Ultrasound 02/04/19 Glucose 1 Hr 50 gm 163 mg/dL (70-140) H 12/08/18 Diagnostics Blood Type O POSITIVE 12/08/18 Antibody Screen NEGATIVE 12/08/18 Glucose 1 Hr 50 gm 163 mg/dL (70-140) H 12/08/18 Hgb 10.8 g/dL (12.0-15.0) L 12/08/18 Hct 32.2 % (37-47) L 12/08/18 Details: HIV: Urine Culture: Sequential Screen: NIPT Screen: ROS Const Reports system reviewed and no additional complaints, except as docu GI Denies abdominal pain, Denies nausea, Denies vomiting Exam Const General: cooperative Nutritional Appearance: well nourished GI Palpation: soft, nontender, other (gravid) Office Procedures OB NST Non-Stress Test Indications for Monitoring: Yes diabetes Time: 10:07 Heart Rate Baseline: 130 Heart Rate Variability: moderate Movement: Present Heart Rate Accelerations: Present Decelerations: Absent Contractions: Absent Impression: Yes Reactive Non-Stress Test Results [id number] Office Urine Glucose Negative Last Edit by Letty Do on 02/11/19 09:27 Office Urine Protein Negative Last Edit by Letty Do on 02/11/19 09:27 Assessment & Plan Problems 1. Supervision of high risk , antepartum O09.90 PRR ELVA 02/28/19 PC Pushpa [facility], Cesar boyfriend Luis Alfredo 2. Diet controlled gestational diabetes mellitus (GDM) in third trimester O24.410 baseline Pre E labs nl, EKG(normal), s/p Opthamologist. growth us q4 weeks after 32 and weekly nst after 32 iol 39 3. 37 weeks gestation of Z3A.37 genetic, carrier, and ntd screening declined. anatomy scan-normal. f/u showed adequate growth 4. Positive GBS test B95.1 5. Anemia affecting in third trimester O99.013 Start iron Plan Orders placed: reactive NST plan IOL pitocin Signed title 19 for BTO: discussed procedure, benefits, risks, lack of regret. Aware needs 30 days after signing form to have procedure done and will not be until 6 wk pp or later. May consider depo pp. Did again discuss IUD Reviewed of labor precautions, movement/kick counts ACOG trimester education reviewed and updated See problem list details for updated plan of care Gestational age appropriate handout given RTO: 1 week UPDATE- I have seen the patient and performed any clinically relevant updates to the history and physical exam. Priya Kennedy MD
[2019-02-22] MEDS: fentaNYL-bupivacaine (epidural) 100 ML BAG EPIDURAL (13:42)
[2019-02-22 14:30] LABS: Bedside Glucose 77 mg/dL (70-110)
[2019-02-22 14:30] LABS: Bedside Glucose 78 mg/dL (70-110)
[2019-02-22] MEDS: Ondansetron 4 MG/2 ML Vial IV (14:38)
[2019-02-22 14:40] LABS: Bedside Glucose 76 mg/dL (70-110)
[2019-02-22 16:51] LABS: Bedside Glucose 73 mg/dL (70-110)
[2019-02-22] MEDS: Dextrose 50%-Water 25 GM/50 ML DISP.SYRIN IV (16:55)
[2019-02-22 18:20] LABS: Bedside Glucose 123 mg/dL (70-110)
[2019-02-22] MEDS: Oxytocin 30 units/NS 500 ml 30 UNITS/500 ML IV.SOLN 334 UNITS IV (18:30)
--- NOTE | 2019-02-22 18:38 | PCM.OPRPT ---
Problem List (1) Anemia affecting Status: Acute Qualifiers: Comment: Start iron (2) Diabetes in Status: Acute Qualifiers: Comment: baseline Pre E labs nl, EKG(normal), s/p Opthamologist. growth us q4 weeks after 32 and weekly nst after 32 iol 39 (3) Pain in symphysis pubis during Status: Acute (4) Positive GBS test Status: Acute (5) Status: Acute Qualifiers: Comment: genetic, carrier, and ntd screening declined. anatomy scan-normal. f/u showed adequate growth (6) Segmental and somatic dysfunction of lumbar region Status: Acute (7) Segmental and somatic dysfunction of sacral region Status: Acute (8) Supervision of high risk , antepartum Status: Acute Comment: PRR ELVA 02/28/19 PC Pushpa [facility]cleod Jaxon boyfriend Luis Alfredo Vaginal Delivery Maternal Presentation: Medically Indicated Induction iol 39 weeks diabetes Method of Induction: Pitocin Amniotic Membrane Rupture Type: Artificial Amniotic Fluid Description: Clear Final ELVA: 02/28/19 Gestational age: 39 Weeks and 1 Days Date of Procedure: 02/22/19 Pre-Operative Diagnosis: iol Post-Operative Diagnosis: same Surgery/ Procedure Performed: Spontaneous Vaginal Delivery Type of Anesthesia: Epidural Description of Procedure: delivered head atraumatically delivered through loose nuchal cord placed on maternal abdomen without complication. delayed cord clamping. 300cc ebl placenta delivered spontaneously immediately following Presentation: LOP Placental Delivery Description: Spontaneous Placenta Disposition: [facility] Cord Vessel Description: 3 Vessels Drain: Sepulveda to straight drain Estimated Blood Loss: 300 A gender: Male Episiotomy Description: None Laceration: None Medications given after delivery: IV Pitocin Complications: None Multi Select Codes - Urinary/Genital Urinary/Genital CPT Codes: 37721 Vaginal Delivery+ PP Care([facility])
[2019-02-22 19:15] LABS: Bedside Glucose 77 mg/dL (70-110)
[2019-02-22 23:33] VITALS: BP 109/57; PULSE 108; RESP 16; TEMP 37.4; O2SAT 97
[2019-02-23] MEDS: Naproxen 250 MG Tablet 500 MG PO ×3 (01:34→17:43)
[2019-02-23] MEDS: Acetaminophen 500 MG Tablet 1000 MG PO ×3 (02:32→21:22)
[2019-02-23 04:29] VITALS: BP 126/74; PULSE 89; RESP 18; TEMP 36.8; O2SAT 97
[2019-02-23 06:01] LABS: Bedside Glucose 98 mg/dL (70-110)
[2019-02-23 08:30] VITALS: BP 111/63; PULSE 80; RESP 16; TEMP 36.5
[2019-02-23 12:00] VITALS: BP 116/62; PULSE 74; RESP 16; TEMP 36.6
[2019-02-23] MEDS: Senna/Docusate Sodium 1 Tablet PO (13:44)
[2019-02-23 15:11] LABS: Bedside Glucose 64 mg/dL (70-110)
[2019-02-23 15:11] LABS: Bedside Glucose 62 mg/dL (70-110)
[2019-02-23 16:25] VITALS: BP 112/66; PULSE 82; RESP 14; TEMP 37.1
[2019-02-23 20:09] VITALS: BP 126/80; PULSE 75; RESP 18; TEMP 36.5; O2SAT 98
[2019-02-24] MEDS: oxyCODONE 5 MG Tablet PO (00:39)
[2019-02-24] MEDS: Naproxen 250 MG Tablet 500 MG PO ×2 (01:42→12:15)
[2019-02-24 01:55] VITALS: BP 133/86; PULSE 71; RESP 18; TEMP 36.4; O2SAT 96
--- NOTE | 2019-02-24 03:09 | NURSING ---
Patient denies headache or visual changes. Patient reports that she's experiencing pain. Medicating when due. Patient using K pad.
--- NOTE | 2019-02-24 05:20 | PCM.PN.OB ---
Subjective: late entry- patient seen 02/23 at 800 doing well no complaints pain controlled no CP SOB N V ambulating well tolerating po lochia moderate, going well - Physical Exam General: Alert, Oriented x3 Vital Signs Temp Pulse Resp BP Pulse Ox 97.5 F L 71 18 133/86 H 96 02/24/19 01:55 02/24/19 01:55 02/24/19 01:55 02/24/19 01:55 02/24/19 01:55 Oxygen Delivery Method Room Air Weight: 178 lb 12.8 oz Body Mass Index (BMI) 32.7 Intake and Output for Last 24 Hours 02/22/19 02/23/19 02/24/19 23:59 23:59 23:59 Intake Total 2699.05 / 2699.05 Output Total 800 / 800 600 / 600 Balance 1899.05 / 1899.05 -600 / -600 POC Glucose 02/23/19 02/22/19 02/22/19 05:56 16:46 16:31 POC Glucose 98 64 L 62 L Medical Necessity - Tobacco Use Smoking Status: Never smoker Assessment/Plan All Active Problems (Last Reviewed 02/16/19 @ 09:23 by Letty Do) Positive GBS test (Acute) Anemia affecting (Acute) Segmental and somatic dysfunction of sacral region (Acute) Segmental and somatic dysfunction of lumbar region (Acute) Pain in symphysis pubis during (Acute) Supervision of high risk , antepartum (Acute) Diabetes in (Acute) (Acute) Gestational diabetes (Resolved) History of ureteral stone (Resolved) Nausea and vomiting (Resolved) s/p PPD # 1 1. routine post delivery care 2. breast feeding- support given 3. rh positive 4. rubella immune check FBS
--- NOTE | 2019-02-24 07:53 | PCM.PN.OB ---
Subjective: doing well no complaints pain controlled no CP SOB N V ambulating well tolerating po lochia moderate, /bottle with support. - Physical Exam General: Alert, Oriented x3 Abdomen: Soft, Non Tender, - - FF below U Vital Signs Temp Pulse Resp BP Pulse Ox 97.5 F L 71 18 133/86 H 96 02/24/19 01:55 02/24/19 01:55 02/24/19 01:55 02/24/19 01:55 02/24/19 01:55 Oxygen Delivery Method Room Air Weight: 178 lb 12.8 oz Body Mass Index (BMI) 32.7 Intake and Output for Last 24 Hours 02/22/19 02/23/19 02/24/19 23:59 23:59 23:59 Intake Total 2699.05 / 2699.05 Output Total 800 / 800 600 / 600 Balance 1899.05 / 1899.05 -600 / -600 POC Glucose 02/22/19 02/22/19 16:46 16:31 POC Glucose 64 L 62 L Medical Necessity - Tobacco Use Smoking Status: Never smoker Assessment/Plan All Active Problems (Last Reviewed 02/16/19 @ 09:23 by Letty Do) Positive GBS test (Acute) Anemia affecting (Acute) Segmental and somatic dysfunction of sacral region (Acute) Segmental and somatic dysfunction of lumbar region (Acute) Pain in symphysis pubis during (Acute) Supervision of high risk , antepartum (Acute) Diabetes in (Acute) (Acute) Gestational diabetes (Resolved) History of ureteral stone (Resolved) Nausea and vomiting (Resolved) s/p PPD # 2 1. routine post delivery care 2. breast feeding- support given 3. rh positive 4. rubella immune 5. Blood glucose WNL 6.Home today
--- NOTE | 2019-02-24 07:55 | DCINST_ITS ---
Additional Instructions: If you experience any of the following, contact your healthcare provider. * Bleeding that soaks a pad every hour for 2 hours * Fever 100.4 or higher * Unrelieved incision or abdominal pain * Swelling, redness, discharge or bleeding from your incision or episiotomy site * Your incision begins to separate * Problems urinating (including inability to urinate or burning while urinating). * Visual changes * Severe headache * Flu-like symptoms * Pain or redness in one of both of your breasts * Pain, warmth, tenderness or swelling in your legs, especially the calf area * Frequent nausea and vomiting * Symptoms of depression or anxiety If you experience any of the following, call 911 or go to the nearest Emergency Room. * Chest pain * Problems breathing * Seizure activity * Partial or complete paralysis of a body part, slurred speech, weakness or drooping of the face, or a sudden inability to walk or hold your balance Allergies/Adverse Reactions: Allergies No Known Allergies Allergy (Verified 02/16/19 09:22) Medications to take at Discharge Blood Sugar Diagnostic [Truetrack Test] 0 .ROUTE .MEDSUPPLY 02/22/19 Blood-Glucose Meter [Contour] 0 .ROUTE .MEDSUPPLY 02/22/19 Lancets [Super Thin Lancets] 0 .ROUTE .MEDSUPPLY 02/22/19 Pnv No.95/Ferrous Fum/Folic AC [ Caplet] 1 ea PO DAILY 02/22/19 Primary Care Physician: Lior Parker MD [Primary Care Provider] - Test Results: Test results from this visit will be discussed in further detail at your follow- up appointment, if applicable.
--- NOTE | 2019-02-24 07:55 | PCM.DCVAG ---
Additional Instructions: If you experience any of the following, contact your healthcare provider. Bleeding that soaks a pad every hour for 2 hours Fever 100.4 or higher Unrelieved incision or abdominal pain Swelling, redness, discharge or bleeding from your incision or episiotomy site Your incision begins to separate Problems urinating (including inability to urinate or burning while urinating). Visual changes Severe headache Flu-like symptoms Pain or redness in one of both of your breasts Pain, warmth, tenderness or swelling in your legs, especially the calf area Frequent nausea and vomiting Symptoms of depression or anxiety If you experience any of the following, call 911 or go to the nearest Emergency Room. Chest pain Problems breathing Seizure activity Partial or complete paralysis of a body part, slurred speech, weakness or drooping of the face, or a sudden inability to walk or hold your balance Allergies/Adverse Reactions: Allergies No Known Allergies Allergy (Verified 02/16/19 09:22) Medications to take at Discharge Blood Sugar Diagnostic [Truetrack Test] 0 .ROUTE .MEDSUPPLY 02/22/19 Blood-Glucose Meter [Contour] 0 .ROUTE .MEDSUPPLY 02/22/19 Lancets [Super Thin Lancets] 0 .ROUTE .MEDSUPPLY 02/22/19 Pnv No.95/Ferrous Fum/Folic AC [ Caplet] 1 ea PO DAILY 02/22/19 Primary Care Physician: Lior Parker MD [Primary Care Provider] - Test Results: Test results from this visit will be discussed in further detail at your follow-up appointment, if applicable.
[2019-02-24] MEDS: Acetaminophen 500 MG Tablet 1000 MG PO (08:08)
--- NOTE | 2019-02-24 08:12 | NURSING ---
This instructor directly observed the med administration completed by Filiberto Juarez, student nurse.
[2019-02-24 08:25] VITALS: BP 114/73; PULSE 68; RESP 16; TEMP 36.7
[2019-02-24 11:27] VITALS: BP 122/77; PULSE 90; RESP 16; TEMP 36.7; O2SAT 99
--- NOTE | 2019-02-24 11:42 | NURSING ---
This nurse reviewed the documentation completed by Filiberto Juarez, student nurse and it is complete.
== END 2019-02-24 12:40 | disposition home or self-care (01) | DRG 560 ==
PROVIDERS: Admitting Provider Obstetrics & Gynecology; Family Provider Family Medicine; PCP Family Medicine; Referring Provider Obstetrics & Gynecology; Visit Provider Obstetrics & Gynecology
DX: O24.420 Gestational diabetes mellitus in childbirth, diet controlled (principal); O99.824 Streptococcus B carrier state complicating childbirth; O99.02 Anemia complicating childbirth; D64.9 Anemia, unspecified; O69.81X0 Labor and delivery complicated by cord around neck, without compression, not applicable or unspecified; Z87.442 Personal history of urinary calculi; Z3A.37 37 weeks gestation of pregnancy; Z37.0 Single live birth
CPT/HCPCS: 59025; 59050; 82962; 85025; 86850; 86900; 86901; 99218; J7120; G0378; J2405

== ENCOUNTER → 2019-04-26 09:50 | Outpatient (CLI) | payer MEDICAID, SELFPAY ==
[2019-04-19 10:24] VITALS: BMI 32.7
[2019-04-26 13:21] LABS: Glucose 2 Hour Postprandial 101 mg/dL (<140)
== END ==
PROVIDERS: Obstetrics & Gynecology; Family Provider Family Medicine; PCP Family Medicine; Referring Provider Nurse Practitioner Women's Health; Visit Provider Nurse Practitioner Women's Health
DX: Z86.32 Personal history of gestational diabetes (principal)
CPT/HCPCS: 82950

== ENCOUNTER 2019-04-27 12:53 | Day surgery (SDC) | payer MEDICAID, SELFPAY ==
[2019-04-05 08:57] VITALS: BMI 32.7
[2019-04-19 10:24] VITALS: BMI 32.7
[2019-04-26 12:45] LABS: Hematocrit 37.7 % (37-47); Hemoglobin 12.4 g/dL (12.0-15.0); Mean Corp Hgb Conc 32.9 g/dL (32-36); Mean Corpuscular Hgb 27.5 pg (27.0-32.0); Mean Corpuscular Volume 83.6 fL (81-99); Platelet Count 263 K/mm3 (150-450); RBC Distribution Width CV 12.8 % (11.6-14.6); RBC Distribution Width SD 38.9 fl (35.1-43.9); Red Blood Count 4.51 M/mm3 (4.2-5.4); White Blood Count 5.4 K/mm3 (4.4-11.0)
--- NOTE | 2019-04-26 18:00 | HP.PCM_ITS ---
- Problem List (1) Sterilization Status: Acute History and Physical Date of Admission: 04/27/19 Intake Vital Signs 04/19/19 Body Mass Index (BMI) 32.7 04/19/19 Height 5 ft 1.5 in 04/19/19 Weight: 172 lb 4 oz 04/19/19 Body Mass Index (BMI) 32.0 04/19/19 Blood Pressure 114/77 Intake Visit Reasons: pre op BS Carpenter'S Assistant Required: No Is patient in pain?: No Allergies No Known Allergies Allergy (Verified 04/21/19 10:26) Medications norgestimate 0.25 mg-ethinyl estradiol 35 mcg tablet 1 tab PO QDAY #84 tab 04/05/19 [Rx Confirmed 04/21/19] Post menopausal: No Patient : No : No [facility] Medical History Anxiety and depression (Acute) Surgical History History of placement of ear tubes (Acute) History of tonsillectomy (Acute) Family History Aunt Cancer leukemia Grandfather Heart disease Unknown Breast cancer Social History (Updated 04/21/19 @ 12:02 by Priya Kennedy MD) Smoking Status: Never smoker alcohol intake: never substance use type: does not use what type of physical activity do you participate in: walking seatbelt use: always do you feel safe at home: Yes additional social history: [facility] pre op BS: Details: BOOGIE SOLORIO is a 29 year old who presents for discussion on contraception. she is planning a tubal removal. Female Reproductive History Menopausal Symptoms: No night sweats Pregancy History 4 Elective abortions Hx Para 4 Spontaneous abortions Hx # Term Pregnancies Ectopic pregnancies Hx # Pregnancies Multiple births # of living children 4 Past Pregnancies Del. Date Name GA/Weeks Outcome Route Bth Weight Gen Labor Lgth Anesthesia Del Locatn Provider FOB Unknown 2011 Pushpa live - full term [facility] Vandeveld Unknown 2013 Shani live - full term [facility] Brent Unknown 2014 Cesar live - full term Male [facility] Harris 02/22/19 Obed 39 live - full term NS VD Male epidural [facility] ARACELIS Delivery Date: No notes to display Delivery Date: No notes to display Delivery Date: No notes to display Delivery Date: 02/22/19 On 02/23/19 @ 09:23 [place] [id number] ROS Const Constitutional: Denies fatigue, night sweats, weight gain or weight loss ENT ENT: Reports system reviewed and no additional complaints, except as docu Cardio Card: Denies chest pain Resp Resp: Denies cough or dyspnea GI GI: Reports as per HPI; denies abdominal pain, constipation, nausea or vomiting : Denies nipple discharge, urinary frequency, urinary incontinence, urinary hesitancy, urinary urgency, vaginal discharge, vaginal dryness, vaginal odor or vaginal itching Musc Musc: Denies joint pain, back pain or muscle weakness Skin Skin/Breast: Denies hair loss, change in hair, dry skin, breast lump, breast pain, breast skin changes or nipple discharge Neuro Neuro: Reports system reviewed and no additional complaints, except as docu Psych Psych: Reports system reviewed and no additional complaints, except as docu Endo Endo: Denies cold intolerance, excessive sweating, heat intolerance or increased thirst Kilo/Lymph Hematologic/Lymphatic: Denies easy bleeding, Denies easy bruising, Denies enlarged lymph nodes Exam Const General: cooperative, healthy appearing, comfortable, no acute distress, well developed Orientation: alert [facility] Head: normal to inspection, normocephalic Ears: hearing grossly normal bilaterally, external ears normal Nose: external nose normal, nares normal Face and sinus: normal facial exam Neck Neck: normal visual inspection, no lymphadenopathy Thyroid: thyroid normal Chest Chest palpation & inspection: normal inspection of the chest Resp Effort & Inspection: normal respiratory effort Cardio Rate: regular rate Rhythm: regular rhythm GI Inspection: normal to inspection, non-distended Palpation: soft, no hepatosplenomegaly Musc Other: gross motor intact no deficits, full bilateral strength Skin General: no rashes or lesions noted Neuro General: alert, awake, moves all extremities, no focal motor deficits Motor: muscle tone normal throughout Extrem General: normal to inspection, no pedal edema Psych Appearance: grossly normal Mental Status: mental status grossly normal Affect: normal affect Speech and Movement: speech and movement normal Assessment & Plan Problems 1. Sterilization Z30.2 Plan After discussing the patient's diagnosis and treatment plan options, patient wishes to proceed with surgical management. I have discussed with the patient the risks, benefits, and alternatives of the procedure which include but are not limited to risks of anesthesia, bleeding, infection, possible damage to bowel, bladder, or surrounding vasculature which could lead to additional surgery to evaluate any complications. Patient agrees to procedure and wishes to proceed. ACOG/uptodate references given for additional information regarding procedure. Orders Referrals: Internal Medicine F41.9 Plan Detail Goals Decrease pain and spasm Increase ability to stand/walk Coding Level of Care Code No Charge Diagnoses Sterilization Z30.2 UPDATE- I have seen the patient and performed any clinically relevant updates to the history and physical exam. Priya Kennedy MD
--- NOTE | 2019-04-27 13:00 | FALS_PTH ---
PATIENT: BOOGIE SOLORIO LOC: [facility] – [place] U#:[id number] AGE/SX: 29/F ROOM: RE04/27/[address]: Dr. Priya Kennedy MD : 1990 BED: DIS: 04/27/2019 SPEC #: [id number] RECD: 04/27/19 16:18 STATUS: ANNELIESE SCOT #: [id number] ANNE: 04/27/19 13:[address]: Priya eKnnedy DEPT: SURGICAL PATHOLOGY RECD BY: Boris Thomason ENTERED: 04/28/19 13:25 SP TYPE: FALL TUBES OTHR DR: Dr. Lior Parker MD Tissues: Fallopian tube Procedures: Surgery Specimen Level II HEADER OPERATION: Laparoscopic salpingectomy PRE-OP DIAGNOSIS: Sterilization TISSUE SUBMITTED: Bilateral fallopian tubes MICROSCOPIC DIAGNOSIS Right and left fallopian tubes, bilateral salpingectomies: Two complete segments of fallopian tubes with no pathologic change. AM:bret 04/29/19 MICROSCOPIC DESCRIPTION Slides are reviewed. GROSS DESCRIPTION Received is one container labeled with the patient's name and designated bilateral fallopian tubes. The specimen consists of bilateral fallopian tubes including fimbrial ends measuring 7.5 cm in length and 0.5 cm in diameter and 5.5 cm in length and 0.5 cm in diameter. Sections do not reveal any mass lesion. The fallopian tubes are not identified as right or left. Sections reveal unremarkable cut surfaces. Drier Operator sections are submitted in two cassettes with each cassette containing one fallopian tube. / ERNESTO:bret 04/28/19 TC:4 CPT: 58078 x2
[2019-04-27 13:20] VITALS: BP 129/81; PULSE 85; RESP 15; TEMP 36.6; O2SAT 100; BMI 31.4
[2019-04-27 13:21] LABS: Internal QC Validated? YES +Cl - CLEAR BKGD; Pregnancy, Urine Negative Negative
[2019-04-27] MEDS: Lactated Ringers 1,000 ML 100 ML IV (13:28)
--- NOTE | 2019-04-27 14:46 | OP.PCM_ITS ---
Problem List (1) Sterilization Status: Acute Report of Operation Date of Procedure: 04/27/19 Pre-Operative Diagnosis: sterilization Post-Operative Diagnosis: same Surgery/Procedure Performed:: laparoscopic bilateral salpingectomy Description of Surgical Findings:: nl tubes nursery technician: Delia Ruiz Type of Anesthesia:: General Special Medications: none Specimen's removed: tubes Drains: none Estimated Blood Loss (mL): minimal Fluids Replaced: crystalloid Description of Procedure: Patient was taken in the operating room and was placed under general anesthesia was prepped and draped in normal sterile fashion in the dorsal lithotomy position. Bladder was drained of clear urine and SCDs were on preoperatively. Uterus was sounded and a uterine manipulator was placed after dilating. Attention was then paid to the abdominal portion of the procedure and the umbilicus was elevated with towel clamps and injected with Marcaine and after a 5 mm incision was made and the Veress needle was entered into the abdomen confirmed to be intra-abdominal with a low opening pressure of less than 5 mmHg. Abdomen was insufflated with CO2 gas and a 5 mm optical trocar was placed under direct visualization. A left lower quadrant 5 mm port and a 5 mm port suprapubically were placed under direct visualization. Uterus was well visualized and bilateral fallopian tubes identified and bilateral tubes were elevated and transecting across the mesosalpinx and the attachment to the uterine corpus bilaterally the tubes were removed without complication. Excellent hemostasis was noted. Fallopian tubes were removed through the lower port sites without complication. Liver and upper abdomen were visualized notably within normal limits and no other gross abnormalities were seen in the abdomen. All instruments removed from the abdomen after gas was desufflated. Port sites were closed with 3-0 Monocryl Steri's and op sites were applied. All instruments removed from the vagina and patient was awoken and taken recovery in stable condition. Grafts/Implants Used: none - Complications none Multi Select Codes - Urinary/Genital Urinary/Genital CPT Codes: 59408 Laproscopic BS/O
--- NOTE | 2019-04-27 14:49 | PCM.DC.TUB ---
Discharge Diet: No Restrictions - Increase fluid intake for the next 48 hours. Discharge Activity: Return to Normal Activity, May Drive - when you are no longer taking narcotic pain medications., May Shower, May Take a Tub Bath - in 7 days Additional Activity Instructions:: Ambulate often the next week after surgery. Nothing in the vagina for 5 days. Call your doctor if your incision/area has: Continuous Slow Oozing, Sudden Increased Bleeding, Increased Pain/ Swelling, Increased Redness, Foul Smelling Discharge Call your doctor if you observe: Fever of 101 or Higher Allergies/Adverse Reactions: Allergies No Known Allergies Allergy (Verified 04/27/19 13:11) Medications to take at Discharge norgestimate 0.25 mg-ethinyl estradiol 35 mcg tablet 1 tab PO QDAY #84 tab 04/05/19 Naproxen [Naprosyn] 250 - 500 mg PO Q8H PRN PRN #30 tab 04/27/19 Oxycodone HCl/Acetaminophen [Percocet 5-325] 1 - 2 tablet PO Q6H PRN PRN 7 Days #15 tablet 04/27/19 The following prescriptions were given: Naproxen [Naprosyn] 250 - 500 mg PO Q8H PRN PRN #30 tab PRN Reason: MILD PAIN Transmission Status: Pending to [facility] Oxycodone HCl/Acetaminophen [Percocet 5-325] 1 - 2 tablet PO Q6H PRN PRN 7 Days #15 tablet PRN Reason: Pain Transmission Status: Sent to [facility] Orders to be completed after discharge: Type & Screen Time Frame: 04/21/19, Facility: [facility] [place], Location: Laboratory CBC-Complete Blood Cnt No Diff Time Frame: 04/21/19, Facility: [facility] [place], Location: Laboratory Primary Care Physician: Lior Parker MD [Primary Care Provider] - Test Results: Test results from this visit will be discussed in further detail at your follow-up appointment, if applicable. Please Follow Up With: Priya Kennedy MD - [phone]
[2019-04-27] MEDS: Bupivacaine Mpf 0.5% 30 ML VIAL (15:35)
[2019-04-27 15:56] VITALS: BP 104/73; BP 129/81; PULSE 66; RESP 16; TEMP 36.3; O2SAT 100
[2019-04-27 16:00] VITALS: BP 129/81; BP 137/63; PULSE 75; RESP 16; O2SAT 100
[2019-04-27 16:15] VITALS: BP 129/81; BP 87/75; PULSE 75; RESP 16; O2SAT 100
[2019-04-27 16:30] VITALS: BP 106/73; BP 129/81; PULSE 70; RESP 16; TEMP 36.7; O2SAT 100
[2019-04-27 18:17] VITALS: BP 104/52; BP 129/81; PULSE 81; RESP 16; TEMP 36.4; O2SAT 100
== END 2019-04-27 18:35 | disposition home or self-care (01) ==
LOC: SDC 12:53 → AC 12:54
PROVIDERS: Family Provider Family Medicine; PCP Family Medicine; Referring Provider Obstetrics & Gynecology; Visit Provider Obstetrics & Gynecology
PROC: (CPT 58661; principal; 2019-04-27 12:45)
DX: Z30.2 Encounter for sterilization (principal); K21.9 Gastro-esophageal reflux disease without esophagitis; Z87.442 Personal history of urinary calculi; Z86.32 Personal history of gestational diabetes
CPT/HCPCS: 00840; 58661; 36415; 81025; 85027; 86850; 86900; 86901; 88302; J7120; C1760; J2405

== ENCOUNTER → 2019-11-10 13:48 | Outpatient (CLI) | payer MEDICAID, SELFPAY ==
[2019-11-10 13:14] VITALS: BMI 31.4
[2019-11-10 15:54] LABS: Hemoglobin A1c 5.3 % (3.8-5.6)
[2019-11-10 15:56] LABS: Thyroid Stim Hormone (TSH) 6.78 uIU/mL (0.358-3.74)
[2019-11-10 18:40] LABS: T4 Free Direct 0.75 ng/dL (0.76-1.46)
== END ==
PROVIDERS: PCP Internal Medicine; Referring Provider Internal Medicine; Visit Provider Internal Medicine
DX: O24.419 Gestational diabetes mellitus in pregnancy, unspecified control (principal); N92.6 Irregular menstruation, unspecified; E66.9 Obesity, unspecified; Z3A.00 Weeks of gestation of pregnancy not specified
CPT/HCPCS: 36415; 83036; 84439; 84443

== ENCOUNTER → 2019-12-22 13:33 | Outpatient (CLI) | payer MEDICAID, SELFPAY ==
[2019-11-10 13:14] VITALS: BMI 31.4
[2019-12-22 15:54] LABS: Thyroid Stim Hormone (TSH) 2.88 uIU/mL (0.358-3.74)
== END ==
PROVIDERS: PCP Internal Medicine; Referring Provider Internal Medicine; Visit Provider Internal Medicine
DX: E03.9 Hypothyroidism, unspecified (principal)
CPT/HCPCS: 36415; 84443

== ENCOUNTER → 2020-01-25 10:06 | Outpatient (CLI) | payer MEDICAID, SELFPAY ==
[2020-01-25 09:15] VITALS: BMI 34.0
[2020-01-25 12:20] LABS: T4 Free Direct 1.11 ng/dL (0.76-1.46); Thyroid Stim Hormone (TSH) 2.86 uIU/mL (0.358-3.74)
[2020-01-25 13:10] LABS: Vitamin B12 427 pg/mL (211-911); Vitamin D,25 Hydroxy 20.9 ng/mL
[2020-01-26 10:40] LABS: Thyroid Peroxidase AB 554 IU/mL (0-34)
== END ==
PROVIDERS: PCP Internal Medicine; Referring Provider Internal Medicine Endocrinology, Diabetes & Metabolism; Visit Provider Internal Medicine Endocrinology, Diabetes & Metabolism
DX: E03.9 Hypothyroidism, unspecified (principal); R20.2 Paresthesia of skin; R25.2 Cramp and spasm; E55.9 Vitamin D deficiency, unspecified
CPT/HCPCS: 36415; 82306; 82607; 84439; 84443; 86376

== ENCOUNTER → 2020-09-25 09:17 | Outpatient (CLI) | payer MEDICAID, SELFPAY ==
[2020-04-12 13:03] VITALS: BMI 33.0
[2020-09-25 12:40] LABS: T4 Free Direct 1.07 ng/dL (0.76-1.46); Thyroid Stim Hormone (TSH) 2.16 uIU/mL (0.358-3.74)
== END ==
PROVIDERS: PCP Internal Medicine; Visit Provider Internal Medicine Endocrinology, Diabetes & Metabolism
DX: E03.9 Hypothyroidism, unspecified (principal)
CPT/HCPCS: 36415; 84439; 84443

== ENCOUNTER → 2020-11-14 | Outpatient (CLI) | payer MEDICAID, SELFPAY ==
[2020-11-14 14:05] VITALS: BMI 31.4
== END | disposition home or self-care (01) ==
LOC: LABSPEC 16:25
PROVIDERS: PCP Internal Medicine; Referring Provider Nurse Practitioner Women's Health; Visit Provider Nurse Practitioner Women's Health
DX: K61.1 Rectal abscess (principal)
CPT/HCPCS: 87070; 87077; 87186; 87205

== ENCOUNTER → 2020-12-04 11:37 | Outpatient (CLI) | payer MEDICAID, SELFPAY ==
[2020-12-04 11:11] VITALS: BMI 31.4
[2020-12-04 12:55] LABS: Absolute Lymphocyte Count 1.82 X10^3/uL (0.83-4.51); Absolute Neutrophil Count 2.5 X10^3/uL (2.0-7.7); Basophil# 0.04 X10^3/uL; Basophil% 0.8 % (0-1); Eosinophil# 0.27 X10^3/uL; Eosinophils% 5.5 % (0-5); Hematocrit 35.6 % (37-47); Hemoglobin 11.6 g/dL (12.0-15.0); Lymphocyte # 1.82 X10^3/ul (0.83-4.51); Lymphocyte % 36.8 % (19-41); Mean Corp Hgb Conc 32.6 g/dL (32-36); Mean Corpuscular Hgb 27.2 pg (27.0-32.0); Mean Corpuscular Volume 83.4 fL (81-99); Mean Platelet Vol. 11.4 fl (6.2-12.0); Monocyte# 0.32 X10^3/uL; Monocyte% 6.5 % (0-10); NRBC Flagged by Analyzer 0 % (0-5); Neutrophil # 2.47 X10^3/uL (2.7-7.7); Platelet Count 244 K/mm3 (150-450); RBC Distribution Width CV 13.5 % (11.6-14.6); RBC Distribution Width SD 41.1 fl (35.1-43.9); Red Blood Count 4.27 M/mm3 (4.2-5.4); White Blood Count 4.9 K/mm3 (4.4-11.0)
[2020-12-04 13:06] LABS: Hemoglobin A1c 5.7 % (3.8-5.6)
[2020-12-04 13:37] LABS: ALB/GLOB Ratio 0.9 RATIO (0.9-2.4); AST(SGOT) 17 U/L (15-37); Alanine Aminotransfer ALT/SGPT 28 U/L (13-56); Albumin, Serum 3.6 g/dL (3.2-5.0); Alkaline Phosphatase 62 U/L (45-117); Anion Gap 6 (5-15); BUN 14 mg/dL (7-18); BUN/Creat Ratio 19.9 RATIO (10-20); Calcium,Total 8.7 mg/dL (8.5-10.1); Chloride 110 mmol/L (98-107); Cholesterol 168 mg/dL (200); EST Glomerular Filtration Rate 105 mL/min (>60); Est Glom Filt Rate - Afr Amer 126 mL/min (>60); Globulin 3.8 g/dL (2.2-4.2); Glucose 92 mg/dL (74-106); High Density Lipoprotein 49 mg/dL; Potassium 3.6 mmol/L (3.5-5.1); Protein, Total 7.4 g/dL (6.4-8.2); Sodium Level 140 mmol/L (136-145); T4 Free Direct 0.98 ng/dL (0.76-1.46); Thyroid Stim Hormone (TSH) 1.92 uIU/mL (0.358-3.74); Triglycerides 131 mg/dL; Very Low Density Lipoprotein 26 mg/dL (5-40)
== END ==
PROVIDERS: PCP Internal Medicine; Referring Provider Physician Assistant; Visit Provider Physician Assistant
DX: E03.9 Hypothyroidism, unspecified (principal); Z86.32 Personal history of gestational diabetes
CPT/HCPCS: 36415; 80053; 80061; 83036; 84439; 84443; 85025

== ENCOUNTER 2021-05-30 09:57 | Outpatient (CLI) | payer MEDICAID, SELFPAY ==
[2021-05-30 12:26] LABS: Absolute Lymphocyte Count 2.51 X10^3/uL (0.83-4.51); Absolute Neutrophil Count 3.9 X10^3/uL (2.0-7.7); Basophil# 0.06 X10^3/uL; Basophil% 0.8 % (0-1); Eosinophil# 0.33 X10^3/uL; Eosinophils% 4.5 % (0-5); Hematocrit 38.7 % (37-47); Hemoglobin 12.8 g/dL (12.0-15.0); Lymphocyte # 2.51 X10^3/ul (0.83-4.51); Lymphocyte % 34.3 % (19-41); Mean Corp Hgb Conc 33.1 g/dL (32-36); Mean Corpuscular Hgb 27.6 pg (27.0-32.0); Mean Corpuscular Volume 83.6 fL (81-99); Monocyte# 0.46 X10^3/uL; Monocyte% 6.3 % (0-10); NRBC Flagged by Analyzer 0 % (0-5); Neutrophil # 3.92 X10^3/uL (2.7-7.7); Neutrophil % 53.7 % (47-70); Platelet Count 252 K/mm3 (150-450); RBC Distribution Width CV 13.2 % (11.6-14.6); RBC Distribution Width SD 40.1 fl (35.1-43.9); Red Blood Count 4.63 M/mm3 (4.2-5.4); White Blood Count 7.3 K/mm3 (4.4-11.0)
[2021-05-30 12:38] LABS: Anion Gap 7 (5-15); BUN 16 mg/dL (7-18); BUN/Creat Ratio 21.1 RATIO (10-20); Chloride 110 mmol/L (98-107); Creatinine, Serum 0.76 mg/dL (0.55-1.02); EST Glomerular Filtration Rate 96 mL/min (>60); Est Glom Filt Rate - Afr Amer 116 mL/min (>60); Glucose 116 mg/dL (74-106); Potassium 4.1 mmol/L (3.5-5.1); Sodium Level 140 mmol/L (136-145); Thyroid Stim Hormone (TSH) 3.67 uIU/mL (0.358-3.74)
[2021-05-30 12:39] LABS: Hemoglobin A1c 5.4 % (3.8-5.6)
== END 2021-05-30 23:59 | disposition short-term general hospital (02) ==
LOC: BIMLAB 09:58
PROVIDERS: PCP Internal Medicine; Visit Provider Internal Medicine
DX: E03.9 Hypothyroidism, unspecified (principal); R73.03 Prediabetes
CPT/HCPCS: 36415; 80048; 83036; 84443; 85025

== ENCOUNTER → 2021-11-28 | Outpatient (CLI) | payer MEDICAID, SELFPAY ==
[2021-11-28 12:38] LABS: Anion Gap 5 (5-15); BUN 17 mg/dL (7-18); Chloride 110 mmol/L (98-107); Cholesterol 173 mg/dL (200); Creatinine, Serum 0.77 mg/dL (0.55-1.02); EST Glomerular Filtration Rate 93 mL/min (>60); Est Glom Filt Rate - Afr Amer 113 mL/min (>60); Glucose 111 mg/dL (74-106); High Density Lipoprotein 37 mg/dL; Sodium Level 139 mmol/L (136-145); Triglycerides 184 mg/dL; Very Low Density Lipoprotein 37 mg/dL (5-40)
[2021-11-28 13:10] LABS: Hemoglobin A1c 5.5 % (3.8-5.6)
== END | disposition home or self-care (01) ==
LOC: BIMLAB 10:33
PROVIDERS: PCP Internal Medicine; Referring Provider Internal Medicine; Visit Provider Internal Medicine
DX: E03.9 Hypothyroidism, unspecified (principal); R73.03 Prediabetes; E66.9 Obesity, unspecified
CPT/HCPCS: 36415; 80048; 80061; 83036

== ENCOUNTER → 2022-04-22 | Outpatient (CLI) | payer MEDICAID, SELFPAY ==
[2022-04-30 11:46] LABS: HPV APTIMA, High Risk Negative (Negative)
== END | disposition home or self-care (01) ==
LOC: LABSPEC 15:52
PROVIDERS: PCP Internal Medicine; Referring Provider Registered Nurse; Visit Provider Registered Nurse
DX: Z12.4 Encounter for screening for malignant neoplasm of cervix (principal)
CPT/HCPCS: 87624; 88175; G0145

== ENCOUNTER → 2022-04-25 | Outpatient (CLI) | payer MEDICAID, SELFPAY ==
[2022-04-25 13:42] LABS: Hemoglobin A1c 5.6 % (3.8-5.6)
[2022-04-25 14:04] LABS: AST(SGOT) 11 U/L (15-37); Alanine Aminotransfer ALT/SGPT 26 U/L (13-56); Albumin, Serum 3.6 g/dL (3.2-5.0); Alkaline Phosphatase 66 U/L (45-117); Anion Gap 6 (5-15); BUN 14 mg/dL (7-18); BUN/Creat Ratio 16.5 RATIO (10-20); Calcium,Total 8.6 mg/dL (8.5-10.1); Chloride 108 mmol/L (98-107); Cholesterol 171 mg/dL (200); Creatinine, Serum 0.85 mg/dL (0.55-1.02); EST Glomerular Filtration Rate 84 mL/min (>60); Est Glom Filt Rate - Afr Amer 101 mL/min (>60); Globulin 3.6 g/dL (2.2-4.2); Glucose 108 mg/dL (74-106); High Density Lipoprotein 35 mg/dL; Potassium 3.6 mmol/L (3.5-5.1); Protein, Total 7.2 g/dL (6.4-8.2); Sodium Level 140 mmol/L (136-145); Thyroid Stim Hormone (TSH) 2.38 uIU/mL (0.358-3.74); Triglycerides 324 mg/dL; Very Low Density Lipoprotein 65 mg/dL (5-40)
== END | disposition home or self-care (01) ==
LOC: LAB 12:57
PROVIDERS: PCP Internal Medicine; Referring Provider Internal Medicine Endocrinology, Diabetes & Metabolism; Visit Provider Internal Medicine Endocrinology, Diabetes & Metabolism
DX: R73.03 Prediabetes (principal); E78.2 Mixed hyperlipidemia; E03.9 Hypothyroidism, unspecified
CPT/HCPCS: 36415; 80053; 80061; 83036; 84439; 84443

== ENCOUNTER 2022-11-17 17:18 | Emergency (ER) | payer MEDICAID, SELFPAY ==
[2022-11-17 17:18] VITALS: BP 124/85; PULSE 99; RESP 18; TEMP 36.4; O2SAT 98; BMI 34.9
--- NOTE | 2022-11-17 17:28 | EX.ED.DYSGE1 ---
HPI <ILYA Yan - Last Filed: 11/17/22 17:52> History of Present Illness Chief Complaint: Lower Extremity Injury Narrative Narrative: 32-year-old female missed the last step coming out of her camper and rolled her left ankle about 2 hours ago. She has pain and swelling on the outer ankle and is able to walk with pain. No weakness numbness or tingling. PFSH <ILYA Yan - Last Filed: 11/17/22 17:52> [facility] Medical History (Updated 11/17/22 @ 17:40 by ILYA Yan) Acne Anxiety and depression Hearing loss History of kidney stones Mixed hyperlipidemia Obesity Obesity (BMI 30-39.9) Prediabetes Prediabetes Home Medications levothyroxine 50 mcg tablet 50 mcg PO DAILY #90 tabs 04/25/22 [Rx Last Taken Unknown] Trulicity 0.75 mg/0.5 mL subcutaneous pen injector (dulaglutide) 0.75 mg (0.5 mL) subcut QWEEK #2 mL 08/20/22 [Rx Last Taken Unknown] Allergy/AdvReac Type Severity Reaction Status Date / Time No Known Allergies Allergy Verified 04/25/22 09:21 Family History Aunt Cancer leukemia Grandfather Heart disease Hypertension Diabetes Unknown Breast cancer Grandmother Arthritis Diabetes Uncle Diabetes Hypertension Surgical History History of placement of ear tubes History of tonsillectomy History of tubal ligation Social History Smoking Status: Never smoker alcohol intake: never substance use type: does not use caffeine: Yes what type of physical activity do you participate in: none seatbelt use: always do you feel safe at home: Yes additional social history: Single- [place] ROS <ILYA Yan - Last Filed: 11/17/22 17:52> ROS ED ROS Narrative Neuro: Negative for motor/sensory dysfunction. Skin: Negative for wound. Musc: Positive for left ankle pain, swelling, trauma. Heme: Negative for easy bruising, bleeding, lymphadenopathy. EXAM <ILYA Yan - Last Filed: 11/17/22 17:52> Physical Exam Narrative Exam Narrative: CONST: Patient sitting in no acute distress. EYES: Normal inspection. NECK: Normal inspection. RESP: No respiratory distress, CTAB. CVS: Regular rate and rhythm, no murmur, no gallop. SKIN: Color normal, no rash, warm, dry, intact. EXTREMITIES: Soft tissue swelling and tenderness left lateral malleolus. No tenderness of the knee lower leg or foot. Full ROM, normal strength and sensation, Achilles intact, 2+ DP pulse. NEURO: Oriented x4. PSYCH: Normal affect. Const Vital Signs: 11/17/22 17:18 Temperature 97.5 F L Temperature Source Temporal Pulse Rate 99 Respiratory Rate 18 Blood Pressure 124/85 H Blood Pressure Mean 98 Pulse Ox 98 <Dr. Christophe Vitale MD - Last Filed: 11/17/22 17:51> Physical Exam Const Vital Signs: 11/17/22 17:18 Temperature 97.5 F L Temperature Source Temporal Pulse Rate 99 Respiratory Rate 18 Blood Pressure 124/85 H Blood Pressure Mean 98 Pulse Ox 98 <Dr. Christophe Vitale MD - Last Filed: 11/17/22 17:51> [facility] MDM Narrative Medical decision making narrative: I have personally performed a face to face assessment of the patient and have reviewed the MORIAH Note. I performed a substantive portion of the visit including all aspects of the following. My marie findings include: History is 32-year-old female walking down a few steps twisted her left ankle. Pain and swelling laterally. Unable to bear weight. No other injuries. Exam is [well-appearing 32-year-old. No acute distress. Vital signs stable afebrile. HEENT, neck, heart, lung, chest, abdomen and back exam are unremarkable nontender. She has full flexion-extension of both hips, knees and ankles. Left ankle has swelling and tenderness primarily laterally. No gross bony deformity. Achilles tendon intact. Dorsi plantarflexion intact. Able to wiggle her toes. Normal DP pulse. Normal touch sensation.] Medical Decision Making [32-year-old left ankle injury. X-rays were obtained 3 views interpreted by herself showed no acute abnormality. Aircast, crutches, ice, elevate and anti-inflammatories. Follow-up if not improving in a week.] Other additions or changes: [None] History & Record Review Discussion w/independent historian: Patient Radiography Diagnostic Testing: Left ankle x-ray, 3 views, interpreted by ourselves shows no acute abnormality. No fracture. No dislocation. Discharge Plan Triage Chief Complaint: Lower Extremity Injury ED Midlevel Provider: Asia Harrington ED Provider: Christophe Vitale Dx/Rx/DC Orders Clinical Impression: Left ankle sprain Instructions: ED Ankle Sprain (Adult) Prescriptions: No Action levothyroxine 50 mcg tablet 50 mcg PO DAILY Qty: 90 3RF Trulicity 0.75 mg/0.5 mL pen injector 0.75 mg subcut QWEEK Qty: 2 3RF Primary Care Provider: Parminder Palomares Referrals: Parminder Palomares MD [Primary Care Provider] - Activity Restrictions/Additional Instructions: Rest, ice, and elevate your ankle to decrease swelling. Take Tylenol or Motrin as needed. Disposition Disposition: Home, Self Care
--- NOTE | 2022-11-17 17:35 | RAD_ITS ---
INDICATION: pain EXAMINATION/TECHNIQUE: X-RAY - LEFT XR Ankle Min 3 Views 3 VIEWS COMPARISON: FINDINGS: SOFT TISSUES: No soft tissue swelling or gas. No radiopaque foreign body. BONES/JOINTS: No acute fracture or subluxation.. Normal alignment. Preservation of the joint space.. No sclerotic or destructive changes observed. RAD/Ankle min 3 Views IMPRESSION: Negative. Electronically Signed: Yuli Mckeon MD at 18:20 EDT Reading Location ID and State: [id number] / Tel , Service support ,
[2022-11-17 18:02] VITALS: RESP 16
== END 2022-11-17 18:04 | disposition home or self-care (01) ==
PROVIDERS: Emergency Provider Emergency Medicine; PCP Internal Medicine; Visit Provider Emergency Medicine
DX: S93.402A Sprain of unspecified ligament of left ankle, initial encounter (principal); E78.2 Mixed hyperlipidemia; X50.1XXA Overexertion from prolonged static or awkward postures, initial encounter
CPT/HCPCS: 73610; 99284

== ENCOUNTER → 2023-04-25 | Outpatient (CLI) | payer MEDICAID, SELFPAY ==
[2023-04-25 16:03] LABS: ALB/GLOB Ratio 1.2 RATIO (0.9-2.4); AST(SGOT) 10 U/L (15-37); Alanine Aminotransfer ALT/SGPT 24 U/L (13-56); Albumin, Serum 4.1 g/dL (3.2-5.0); Alkaline Phosphatase 70 U/L (45-117); Anion Gap 5 (5-15); BUN 13 mg/dL (7-18); BUN/Creat Ratio 15.1 RATIO (10-20); Calcium,Total 9.1 mg/dL (8.5-10.1); Chloride 109 mmol/L (98-107); Cholesterol 182 mg/dL (200); Creatinine, Serum 0.86 mg/dL (0.55-1.02); EST Glomerular Filtration Rate 82 mL/min (>60); Est Glom Filt Rate - Afr Amer 99 mL/min (>60); Globulin 3.5 g/dL (2.2-4.2); Glucose 92 mg/dL (74-106); High Density Lipoprotein 49 mg/dL; Protein, Total 7.6 g/dL (6.4-8.2); Sodium Level 140 mmol/L (136-145); T4 Free Direct 1.03 ng/dL (0.76-1.46); Thyroid Stim Hormone (TSH) 1.54 uIU/mL (0.358-3.74); Triglycerides 139 mg/dL; Very Low Density Lipoprotein 28 mg/dL (5-40)
== END | disposition home or self-care (01) ==
LOC: BIMLAB 09:55
PROVIDERS: PCP Internal Medicine; Referring Provider Internal Medicine Endocrinology, Diabetes & Metabolism; Visit Provider Internal Medicine Endocrinology, Diabetes & Metabolism
DX: E03.9 Hypothyroidism, unspecified (principal); E78.2 Mixed hyperlipidemia; R73.03 Prediabetes
CPT/HCPCS: 36415; 80053; 80061; 84439; 84443

== ENCOUNTER → 2023-06-18 | Outpatient (CLI) | payer MEDICAID, SELFPAY ==
[2023-06-21 05:09] LABS: Chlamydia By Nucleic Acid AMP Negative (Negative); Gonococcus By Nucleic Acid AMP Negative (Negative)
== END | disposition home or self-care (01) ==
PROVIDERS: PCP Internal Medicine; Visit Provider Registered Nurse
DX: Z11.3 Encounter for screening for infections with a predominantly sexual mode of transmission (principal)
CPT/HCPCS: 87491; 87591

== ENCOUNTER → 2024-05-24 | Outpatient (CLI) | payer MEDICAID, SELFPAY ==
[2024-05-24 16:42] LABS: ALB/GLOB Ratio 1.1 RATIO (0.9-2.4); AST(SGOT) 12 U/L (15-37); Alanine Aminotransfer ALT/SGPT 29 U/L (13-56); Albumin, Serum 3.9 g/dL (3.2-5.0); Alkaline Phosphatase 71 U/L (45-117); Anion Gap 7 (5-15); BUN 18 mg/dL (7-18); BUN/Creat Ratio 21.1 RATIO (10-20); Calcium,Total 8.9 mg/dL (8.5-10.1); Chloride 110 mmol/L (98-107); Cholesterol 191 mg/dL (200); Creatinine, Serum 0.85 mg/dL (0.55-1.02); EST Glomerular Filtration Rate 82 mL/min (>60); Est Glom Filt Rate - Afr Amer 99 mL/min (>60); Globulin 3.7 g/dL (2.2-4.2); Glucose 96 mg/dL (74-106); High Density Lipoprotein 45 mg/dL; Potassium 3.9 mmol/L (3.5-5.1); Protein, Total 7.6 g/dL (6.4-8.2); Sodium Level 139 mmol/L (136-145); T4 Free Direct 0.94 ng/dL (0.76-1.46); Triglycerides 169 mg/dL; Very Low Density Lipoprotein 34 mg/dL (5-40)
[2024-05-24 17:11] LABS: Vitamin D,25 Hydroxy 8.2 ng/mL
== END | disposition home or self-care (01) ==
LOC: BIMLAB 15:06
PROVIDERS: PCP Internal Medicine; Referring Provider Internal Medicine Endocrinology, Diabetes & Metabolism; Visit Provider Internal Medicine Endocrinology, Diabetes & Metabolism
DX: R73.03 Prediabetes (principal); E03.9 Hypothyroidism, unspecified; E55.9 Vitamin D deficiency, unspecified; E78.2 Mixed hyperlipidemia
CPT/HCPCS: 36415; 80053; 80061; 82306; 84439; 84443

== ENCOUNTER → 2024-06-22 | Outpatient (CLI) | payer MEDICAID, SELFPAY ==
[2024-06-25 06:08] LABS: Chlamydia By Nucleic Acid AMP Negative (Negative); Gonococcus By Nucleic Acid AMP Negative (Negative)
== END | disposition home or self-care (01) ==
LOC: LABSPEC 15:43
PROVIDERS: PCP Internal Medicine; Visit Provider Nurse Practitioner Women's Health
DX: Z11.3 Encounter for screening for infections with a predominantly sexual mode of transmission (principal)
CPT/HCPCS: 87491; 87591